=== PATIENT | male | born 1955 | race Caucasian/White ===

== ENCOUNTER 2016-10-13 11:01 | Day surgery (SDC) | payer MEDICARE, OTHER ==
[2016-10-13] VITALS (7 sets, daily range): BP systolic 136–159; BP diastolic 73–85; PULSE 65–87; TEMP 97.6–98.1
[~2016-10-13] VITALS: Ht 180.3 cm; Wt 114.1 kg
[~2016-10-13 11:01] MED LIST: ALDACTONE50 MG PO; AMARYL4 MG PO; ANTIVERT 25MG25 MG PO; ASPIRIN 32325 MG/TAB PO; BENICAR40 MG PO; BYSTOLIC20 MG PO; CENTRUM SILVER1 CTB PO; CIPRO 500MG TA500 MG PO; COD LIVER OIL1 CAP PO; DEMADEX 20MG20 M1 PO; DEMADEX10 MG PO; DSF FORMULA PO; DUO-KAPS1 CAP PO; FOLIC ACID 11 MG/TA1 PO; HYDRALAZINE10 MG PO; HYTRIN 1MG C1 MG/CAP PO; HYTRIN 5MG C5 MG/CAP PO; JANUVIA50 MG PO; LAMISIL250 M1 PO; LASIX 20MG TABL20 MG PO; LASIX 40MG TABL40 MG PO; MONODOX100 PO; NATURE'S BLEND500 M1 PO; NEPHROCAP PO; NEURONTIN100 MG/CAP PO; NEXIUM 40MG40 MG PO; NORVASC 10MG10 MG PO; PHOS LO PO; POTASSIUM IOD PO; POTASSIUM20 MEQ PO; PRAVACHOL 40MG40 MG PO; PROBIOTIC-MAJOR PO; PROSOL; SAW PALMETTO S450 MG PO; TOPROL XL 25MG25 MG PO; UNABLE; VALIUM 2MG T2 MG/TAB PO; VANCOCIN HCL1 GM IV; VASOTEC 10M10 MG/TAB PO; VASOTEC20 MG PO; VITAMIN C500 MG PO; ZAROXOLYN 2.52.5 MG PO; ZOFRAN 4MG T4 MG/TAB PO; [UNRECOGNIZED DRUG - OTHER] PO; [UNRECOGNIZED DRUG - OTHER] PO; [UNRECOGNIZED DRUG - OTHER] PO; [UNRECOGNIZED DRUG - OTHER] PO; [UNRECOGNIZED DRUG - OTHER] PO; [UNRECOGNIZED DRUG - OTHER] PO; [UNRECOGNIZED DRUG - OTHER] PO; [UNRECOGNIZED DRUG - REMARK] PO
[2016-10-13] MEDS ORDERED: PHOS LO PO (11:23)
[2016-10-13] MEDS ORDERED: PRECOSE 25MG25 MG PO (11:24)
[2016-10-13] MEDS ORDERED: ALTACE 5MG5 MG PO (11:25)
[2016-10-13] MEDS ORDERED: COREG 6.256.25 MG/TA PO (11:25)
[2016-10-13] MEDS ORDERED: [UNRECOGNIZED DRUG - OTHER] PO (11:26)
[2016-10-13] MEDS ORDERED: NORCO 325 MG-51 TAB PO (14:12)
[2016-10-13] MEDS ORDERED: PYRIDIUM 100MG100 MG PO (14:13)
== END 2016-10-13 15:30 | disposition home or self-care (01) ==
LOC: SDCO 11:01
DX: N35.9 Urethral stricture, unspecified (principal); I12.9 Hypertensive chronic kidney disease with stage 1 through stage 4 chronic kidney disease, or unspecified chronic kidney disease; E11.22 Type 2 diabetes mellitus with diabetic chronic kidney disease; N18.9 Chronic kidney disease, unspecified; E78.5 Hyperlipidemia, unspecified; G47.33 Obstructive sleep apnea (adult) (pediatric); Z79.84 Long term (current) use of oral hypoglycemic drugs; Z99.2 Dependence on renal dialysis; Z87.440 Personal history of urinary (tract) infections
CPT/HCPCS: C1769; J0690; J1885; J2405; J2704; J3010; J7030

== ENCOUNTER 2016-10-22 08:49 | Outpatient (CLI) | payer MEDICARE, OTHER ==
[~2016-10-22] VITALS: Ht 180.3 cm; Wt 111.0 kg
[~2016-10-22 08:49] MED LIST changes: +ALTACE 5MG5 MG PO; +COREG 6.256.25 MG/TA PO; +NORCO 325 MG-51 TAB PO; +PRECOSE 25MG25 MG PO; +PYRIDIUM 100MG100 MG PO; +[UNRECOGNIZED DRUG - OTHER] PO
[2016-10-22 09:40] VITALS: BP 162/89; PULSE 69; TEMP 98.1
[2016-10-22 13:35] VITALS: BP 165/79; PULSE 55
[2016-10-22 14:40] VITALS: BP 180/103; PULSE 69
[2016-10-22 14:50] VITALS: BP 185/104; PULSE 72
[2016-10-22 15:04] VITALS: BP 179/102; PULSE 66
[2016-10-22 15:55] VITALS: BP 167/95; PULSE 79
== END 2016-10-22 18:00 | disposition home or self-care (01) ==
LOC: EUO 08:49 → COL.RAD 09:00 → EUO 18:00
DX: N18.6 End stage renal disease (principal)
CPT/HCPCS: C1894; J3010; J7120; Q9967

== ENCOUNTER 2016-11-18 19:42 | Emergency (ER) | payer MEDICARE, OTHER ==
[~2016-11-18] VITALS: Ht 180.3 cm; Wt 115.5 kg
[2016-11-18 20:23] LABS: BASO # 0.1 (0.0-0.2); BASO % 0.7 % (0.0-2.0); EOS # 0.5 (0.0-0.7); EOS % 4.8 % (0-4.0); GRAN % 62.5 % (42.2-75.2); LYMPH # 2.5 (1.2-3.4); LYMPH % 22.1 % (20.0-51.0); MEAN CELL VOLUME 91 fl (80.0-100.0); MEAN CORPUSCULAR HGB CONC 34 g/dl (33.0-37.0); MONO % 8.7 % (1.7-9.3); PLATELET COUNT 168 K/mm3 (130-400); RED BLOOD COUNT 3.42 M/mm3 (4.20-5.60); REDCELL DISTRIBUTION WIDTH-CV 13.5 % (11.5-14.5); WHITE BLOOD COUNT 11.2 K/mm3 (4.8-10.8)
[2016-11-18 20:27] LABS: HEMATOCRIT 31.2 % (42.0-52.0); HEMOGLOBIN 10.5 g/dl (13.5-18.0); MEAN CORPUSCULAR HEMOGLOBIN 31 pg (27.0-31.0)
[2016-11-18 20:42] LABS: CREATININE, serum 3.84 mg/dL (0.66-1.25); MAGNESIUM 1.9 mg/dL (1.6-2.3); PHOSPHOROUS 4.8 mg/dL (2.5-4.5); POTASSIUM 4.1 mmol/L (3.4-5.0); PROTHROMBIN TIME 11.5 SECONDS (9.7-12.8)
[2016-11-18] MEDS ORDERED: JANUVIA50 MG PO (20:50)
[2016-11-18 21:55] VITALS: BP 106/73; PULSE 90; TEMP 97.9
== END 2016-11-18 21:55 | disposition home or self-care (01) ==
LOC: COL.ER 19:42
PROVIDERS: Emergency Medicine
DX: I95.1 Orthostatic hypotension (principal); E11.22 Type 2 diabetes mellitus with diabetic chronic kidney disease; I12.0 Hypertensive chronic kidney disease with stage 5 chronic kidney disease or end stage renal disease; N18.6 End stage renal disease; Z99.2 Dependence on renal dialysis; D64.9 Anemia, unspecified

== ENCOUNTER → 2016-12-10 | Outpatient (CLI) | payer MEDICARE, OTHER | LOC: COL.RAD 07:23 | DX: N23 Unspecified renal colic (principal); R31.9 Hematuria, unspecified ==

== ENCOUNTER → 2017-02-17 | Outpatient (CLI) | payer MEDICARE, OTHER | LOC: COL.RAD 16:42 | DX: I51.7 Cardiomegaly (principal) ==

== ENCOUNTER → 2017-05-28 | Outpatient (CLI) | payer MEDICARE, OTHER | LOC: SUN.DIA 09:33 | DX: E11.22 Type 2 diabetes mellitus with diabetic chronic kidney disease (principal); I12.9 Hypertensive chronic kidney disease with stage 1 through stage 4 chronic kidney disease, or unspecified chronic kidney disease; E11.21 Type 2 diabetes mellitus with diabetic nephropathy; N18.9 Chronic kidney disease, unspecified; Z68.34 Body mass index [BMI] 34.0-34.9, adult; Z87.891 Personal history of nicotine dependence; Z71.3 Dietary counseling and surveillance | CPT/HCPCS: G0108 ==

== ENCOUNTER 2017-06-13 11:25 | Emergency (ER) | payer MEDICARE, OTHER ==
[~2017-06-13] VITALS: Ht 180.3 cm; Wt 113.6 kg
[2017-06-13 11:27] VITALS: BP 162/94; TEMP 98.3
[2017-06-13 12:24] LABS: BASO # 0.1 (0.0-0.2); BASO % 0.9 % (0.0-2.0); EOS # 0.8 (0.0-0.7); EOS % 7.6 % (0-4.0); GRAN # 6.2 (1.4-6.5); GRAN % 60.8 % (42.2-75.2); LYMPH % 19.6 % (20.0-51.0); MEAN CELL VOLUME 94 fl (80.0-100.0); MEAN CORPUSCULAR HGB CONC 33 g/dl (33.0-37.0); MEAN PLATELET VOLUME 11.7 fl (7.4-10.4); MONO # 1.1 (0.1-0.6); MONO % 10.5 % (1.7-9.3); PLATELET COUNT 134 K/mm3 (130-400); RED BLOOD COUNT 3.21 M/mm3 (4.20-5.60); REDCELL DISTRIBUTION WIDTH-CV 14.8 % (11.5-14.5)
[2017-06-13 12:25] LABS: HEMATOCRIT 30.3 % (42.0-52.0); HEMOGLOBIN 10.1 g/dl (13.5-18.0); MEAN CORPUSCULAR HEMOGLOBIN 31 pg (27.0-31.0)
[2017-06-13] MEDS ORDERED: NORCO 325 MG-51 TAB PO (12:56)
[2017-06-13 13:14] VITALS: PULSE 88
[2018-08-15] MEDS ORDERED: MULTI VITAMINS1 TAB PO ×2 (15:27→15:28)
[2018-08-15] MEDS ORDERED: LANTUS SOLOS100 U/ML SQ (15:28)
[2018-08-15] MEDS ORDERED: OCUFLOX OPHTH DR5 ML (15:29)
[2018-08-15] MEDS ORDERED: ILEVRO 0.3% OPHTH DR (15:29)
[2018-08-15] MEDS ORDERED: DUREZOL 5 ML5 ML OU (15:30)
== END 2017-06-13 13:16 | disposition home or self-care (01) ==
LOC: COL.ER 11:25
PROVIDERS: Physician Assistant
DX: M25.561 Pain in right knee (principal); E11.22 Type 2 diabetes mellitus with diabetic chronic kidney disease; I12.0 Hypertensive chronic kidney disease with stage 5 chronic kidney disease or end stage renal disease; N18.6 End stage renal disease; Z79.84 Long term (current) use of oral hypoglycemic drugs; Z99.2 Dependence on renal dialysis; Z86.73 Personal history of transient ischemic attack (TIA), and cerebral infarction without residual deficits
CPT/HCPCS: L1830

== ENCOUNTER 2017-06-24 10:29 | Inpatient (IN) | payer MEDICARE, OTHER ==
[~2017-06-24] VITALS: Ht 180.3 cm; Wt 106.0 kg
[2017-08-19 17:55] LABS: HIV 1/2 Antibodies Non-Reactive; HIV-1p24 Antigen Non-Reactive
[2017-09-04] MEDS ORDERED: LANTUS100 U/ML SQ (10:03)
[2017-09-07] VITALS (12 sets, daily range): BP systolic 124–162; BP diastolic 47–87; PULSE 59–88; TEMP 97–99
[2017-09-07] MEDS ORDERED: RENVELA800 MG PO (07:15)
[2017-09-08 05:01] VITALS: BP 155/69; PULSE 92; TEMP 98.6
[2017-09-08 07:05] VITALS: BP 139/74; PULSE 89; TEMP 98.3
[2017-09-08 07:17] LABS: HEMOGLOBIN 10.2 g/dl (13.5-18.0)
[2017-09-08 07:21] LABS: ALBUMIN 3.1 gm/dL (3.5-5.0); CALCIUM 8.8 mg/dL (8.4-10.2); PHOSPHOROUS 6.5 mg/dL (2.5-4.5); POTASSIUM 4.9 mmol/L (3.4-5.0)
[2017-09-08 07:37] LABS: CREATININE, serum 9.39 mg/dL (0.66-1.25)
[2017-09-08 11:30] VITALS: BP 150/69; PULSE 99; TEMP 98.5
[2017-09-08 16:22] VITALS: BP 164/68; PULSE 97; TEMP 98.4
[2017-09-08 19:36] VITALS: BP 163/79; PULSE 103; TEMP 98.5
[2017-09-09 00:57] VITALS: BP 154/85; PULSE 100; TEMP 98.2
[2017-09-09 03:55] VITALS: BP 155/85; BP 174/85; PULSE 91; TEMP 98.2
[2017-09-09 07:29] VITALS: BP 175/89; PULSE 89; TEMP 97.9
[2017-09-09 10:41] VITALS: BP 138/72; PULSE 86; TEMP 98.1
[2017-09-09] MEDS ORDERED: ELIQUIS 2.5 PO (15:46)
[2017-09-09] MEDS ORDERED: NORCO 325 MG-7.1 TAB PO (15:46)
[2017-09-09 16:25] VITALS: BP 145/72; PULSE 90; TEMP 97.7
== END 2017-09-09 16:55 | disposition home or self-care (01) | DRG 469 ==
LOC: JCC 09-07 05:42
PROVIDERS: Internal Medicine Nephrology; Orthopaedic Surgery
PROC: 0SRC0J9 Replacement of Right Knee Joint with Synthetic Substitute, Cemented, Open Approach (ICD-10-PCS; principal; 2017-09-07 10:25)
PROC: 5A1D70Z Performance of Urinary Filtration, Intermittent, Less than 6 Hours Per Day (ICD-10-PCS; 2017-09-08)
DX: M17.11 Unilateral primary osteoarthritis, right knee (principal); N18.6 End stage renal disease; I12.0 Hypertensive chronic kidney disease with stage 5 chronic kidney disease or end stage renal disease; N25.81 Secondary hyperparathyroidism of renal origin; E11.22 Type 2 diabetes mellitus with diabetic chronic kidney disease; Z99.2 Dependence on renal dialysis; D63.1 Anemia in chronic kidney disease; E83.39 Other disorders of phosphorus metabolism; Z79.4 Long term (current) use of insulin; E11.65 Type 2 diabetes mellitus with hyperglycemia; Z91.14 Patient's other noncompliance with medication regimen
CPT/HCPCS: 99222; A4315; A9284; C1713; C1776; G8978-GP; G8979-GP; J0690; J0882; J1100; J1815; J2250; J2405; J2704; J2916; J3010; J3260; J7030; J7120

== ENCOUNTER → 2017-06-25 | Outpatient (CLI) | payer MEDICARE, OTHER, BC | LOC: SUN.DIA 08:56 | DX: E11.22 Type 2 diabetes mellitus with diabetic chronic kidney disease (principal); E11.21 Type 2 diabetes mellitus with diabetic nephropathy; I12.9 Hypertensive chronic kidney disease with stage 1 through stage 4 chronic kidney disease, or unspecified chronic kidney disease; N18.9 Chronic kidney disease, unspecified; Z79.4 Long term (current) use of insulin; E78.5 Hyperlipidemia, unspecified; Z71.3 Dietary counseling and surveillance ==

== ENCOUNTER 2017-07-01 08:57 | Outpatient (RCR) | payer MEDICARE, OTHER ==
[2017-09-04] MEDS ORDERED: LANTUS100 U/ML SQ (10:03)
[2017-09-07] MEDS ORDERED: RENVELA800 MG PO (07:15)
[2017-09-09] MEDS ORDERED: NORCO 325 MG-7.1 TAB PO (15:46)
[2017-09-09] MEDS ORDERED: ELIQUIS 2.5 PO (15:46)
== END 2017-09-29 | disposition home or self-care (01) ==
LOC: WSST
DX: K22.5 Diverticulum of esophagus, acquired (principal)
CPT/HCPCS: G8996-GN; G8997-GN

== ENCOUNTER → 2017-07-02 | Outpatient (CLI) | payer MEDICARE, OTHER | LOC: COL.RAD 08:00 | DX: R13.10 Dysphagia, unspecified (principal); K22.5 Diverticulum of esophagus, acquired | CPT/HCPCS: G8996-GN; G8997-GN; G8998-GN ==

== ENCOUNTER → 2017-07-24 | Outpatient (CLI) | payer MEDICARE, OTHER | LOC: MHCPAIN 08:27 | DX: G89.29 Other chronic pain (principal); M47.27 Other spondylosis with radiculopathy, lumbosacral region | CPT/HCPCS: G0463 ==

== ENCOUNTER 2017-09-12 17:00 | Outpatient (RCR) | payer MEDICARE, OTHER ==
[2017-09-10 18:08] VITALS: BP 139/90; PULSE 113; TEMP 98
[2017-09-11 17:09] VITALS: BP 182/87; PULSE 103; TEMP 98.2
[~2017-09-12] VITALS: Ht 180.3 cm; Wt 109.9 kg
[~2017-09-12 17:00] MED LIST changes: +ELIQUIS 2.5 PO; +LANTUS100 U/ML SQ; +NORCO 325 MG-7.1 TAB PO; +RENVELA800 MG PO
[2017-09-12 17:26] VITALS: BP 201/96; PULSE 93; TEMP 98.8
[2017-09-12 18:15] LABS: INR 4.8 (0.8-3.0)
[2017-09-12 18:19] LABS: PROTHROMBIN TIME 57.6 SECONDS (9.7-12.8)
== END 2017-09-14 16:43 | disposition home or self-care (01) ==
LOC: EUO 17:00
PROVIDERS: Emergency Medicine
DX: Z79.01 Long term (current) use of anticoagulants (principal); Z47.1 Aftercare following joint replacement surgery; Z96.651 Presence of right artificial knee joint; E11.22 Type 2 diabetes mellitus with diabetic chronic kidney disease; N18.9 Chronic kidney disease, unspecified; E11.40 Type 2 diabetes mellitus with diabetic neuropathy, unspecified; I13.0 Hypertensive heart and chronic kidney disease with heart failure and stage 1 through stage 4 chronic kidney disease, or unspecified chronic kidney disease; I50.9 Heart failure, unspecified; E78.5 Hyperlipidemia, unspecified; K22.5 Diverticulum of esophagus, acquired; G47.33 Obstructive sleep apnea (adult) (pediatric); K20.9 Esophagitis, unspecified; R35.1 Nocturia; N35.9 Urethral stricture, unspecified; N04.9 Nephrotic syndrome with unspecified morphologic changes
CPT/HCPCS: J1650

== ENCOUNTER 2017-11-06 08:45 | Outpatient (RCR) | payer MEDICARE, OTHER | END 2017-11-17 11:26 | disposition home or self-care (01) | LOC: WSPT 08:45 | DX: Z47.1 Aftercare following joint replacement surgery (principal); M17.11 Unilateral primary osteoarthritis, right knee; Z96.651 Presence of right artificial knee joint | CPT/HCPCS: G8978-GP; G8979-GP; G8980-GP ==

== ENCOUNTER → 2017-11-13 | Outpatient (CLI) | payer MEDICARE | LOC: COL.RAD 08:26 | DX: I77.810 Thoracic aortic ectasia (principal) ==

== ENCOUNTER 2018-12-23 12:53 | Day surgery (SDC) | payer MEDICARE, OTHER ==
[2018-12-23] VITALS (10 sets, daily range): BP systolic 170–199; BP diastolic 94–115; PULSE 76–97; TEMP 98.4
[~2018-12-23] VITALS: Ht 180.3 cm; Wt 113.1 kg
[~2018-12-23 12:53] MED LIST changes: +DUREZOL 5 ML5 ML OU; +ILEVRO 0.3% OPHTH DR; +LANTUS SOLOS100 U/ML SQ; +MULTI VITAMINS1 TAB PO; +OCUFLOX OPHTH DR5 ML
[2018-12-23 13:39] LABS: HEMATOCRIT 34.9 % (42.0-52.0); HEMOGLOBIN 11.4 g/dl (13.5-18.0); MEAN CELL VOLUME 93 fl (80.0-100.0); MEAN CORPUSCULAR HEMOGLOBIN 31 pg (27.0-31.0); MEAN CORPUSCULAR HGB CONC 33 g/dl (33.0-37.0); PLATELET COUNT 141 K/mm3 (130-400); RED BLOOD COUNT 3.74 M/mm3 (4.20-5.60)
[2018-12-23 13:44] LABS: PROTHROMBIN TIME 11.7 SECONDS (9.7-12.8)
[2018-12-23 13:48] LABS: CALCIUM 9.8 mg/dL (8.4-10.2); POTASSIUM 4.7 mmol/L (3.4-5.0)
[2018-12-23 13:53] LABS: CREATININE, serum 7.51 mg/dL (0.66-1.25)
[2018-12-23] MEDS ORDERED: PRILOSEC 20MG20 MG PO (14:03)
[2018-12-23] MEDS ORDERED: NEURONTIN100 MG/CAP PO (14:04)
[2018-12-23] MEDS ORDERED: COREG 6.256.25 MG/TA PO (14:09)
[2018-12-23] MEDS ORDERED: VITAMIN C500 MG PO (14:12)
[2018-12-23] MEDS ORDERED: VASCEPA1 GM PO (14:12)
--- NOTE | 2018-12-23 14:38 | NUR ---
pt to procedure.Report to Consuelo Lara.
--- NOTE | 2018-12-23 14:51 | NUR ---
ALL MEDICATIONS GIVEN WITH VERBAL ORDER WITH MD. SEE MERGE FOR ALL MEDICATION ADMIN TIMES. SEE MERGE FOR ALL RASS ASSESSMENTS DURING AND POST PROCEDURE.
--- NOTE | 2018-12-23 18:45 | NUR ---
Discharge instructions given to pt.Pt verbalizes understanding.
--- NOTE | 2018-12-23 19:08 | NUR ---
INT REMOVED,CATHETER TIP INTACT.PT ESCORTED OUT VIA WHEELCHAIR.
== END 2018-12-23 19:08 | disposition home or self-care (01) ==
LOC: COL.CAR 12:53
PROVIDERS: Internal Medicine Interventional Cardiology
DX: I25.10 Atherosclerotic heart disease of native coronary artery without angina pectoris (principal); I34.0 Nonrheumatic mitral (valve) insufficiency; R94.39 Abnormal result of other cardiovascular function study; I87.2 Venous insufficiency (chronic) (peripheral); I11.0 Hypertensive heart disease with heart failure; I50.22 Chronic systolic (congestive) heart failure; E11.9 Type 2 diabetes mellitus without complications; Z96.651 Presence of right artificial knee joint; Z86.73 Personal history of transient ischemic attack (TIA), and cerebral infarction without residual deficits
CPT/HCPCS: J1644; J2250; J3010; Q9967

== ENCOUNTER → 2019-03-28 | Outpatient (CLI) | payer MEDICARE, OTHER ==
[~2019-03-28] MED LIST changes: +PRILOSEC 20MG20 MG PO; +VASCEPA1 GM PO
== END ==
LOC: COL.RAD 12:45
DX: N13.39 Other hydronephrosis (principal); N26.1 Atrophy of kidney (terminal)

== ENCOUNTER 2019-06-23 16:04 | Emergency (ER) | payer MEDICARE, OTHER ==
[~2019-06-23] VITALS: Ht 180.3 cm; Wt 113.6 kg
[2019-06-23 16:31] VITALS: BP 117/60; TEMP 97.9
[2019-06-23 17:26] LABS: HEMOGLOBIN 12.9 g/dl (13.5-18.0); MEAN CELL VOLUME 90 fl (80.0-100.0); MEAN CORPUSCULAR HEMOGLOBIN 29 pg (27.0-31.0); MEAN CORPUSCULAR HGB CONC 32 g/dl (33.0-37.0); MEAN PLATELET VOLUME 10.9 fl (7.4-10.4); PLATELET COUNT 158 K/mm3 (130-400); RED BLOOD COUNT 4.43 M/mm3 (4.20-5.60); REDCELL DISTRIBUTION WIDTH-CV 12.3 % (11.5-14.5)
[2019-06-23 17:42] LABS: COLLECTION METHOD CLEAN CATCH
[2019-06-23 17:44] LABS: ALBUMIN 3.5 gm/dL (3.5-5.0); BILIRUBIN,TOTAL 0.5 mg/dL (0.0-1.0); C-REACTIVE PROTEIN 8.5 mg/dL (0.0-0.9); CREATININE, serum 1.31 (0.66-1.25); POTASSIUM 4.1 mmol/L (3.4-5.0); TOTAL PROTEIN 6.6 gm/dL (6.4-8.2)
[2019-06-23 17:55] LABS: EOSINOPHIL 1 % (0-4); LYMPHOCYTE 6 % (20.0-51.0); NEUTROPHILS 75 % (42.0-75.2); PLATELET ESTIMATE NORMAL (NORMAL)
[2019-06-23 17:58] LABS: MUCOUS Present /lpf; PH 5 (5-8); SQUAMOUS EPITHELIAL None Seen /hpf; URINE APPEARANCE Clear; URINE BACTERIA None Seen /hpf; URINE BILIRUBIN Negative (NEGATIVE); URINE BLOOD Negative (NEGATIVE); URINE COLOR Yellow; URINE GLUCOSE 2+ (NEGATIVE); URINE KETONE Negative (NEGATIVE); URINE LEUKOCYTE ESTERASE Trace (NEGATIVE); URINE NITRATE Negative (NEGATIVE); URINE PROTEIN(semi-quant) Negative (NEGATIVE); URINE RBC 0-2 /hpf; URINE UROBILINOGEN Negative (NEGATIVE)
[2019-06-23] MEDS ORDERED: VANTIN 200200 MG/TAB PO (20:23)
[2019-06-23 20:45] VITALS: PULSE 85
== END 2019-06-23 20:45 | disposition home or self-care (01) ==
LOC: COL.ER 16:04
PROVIDERS: Family Medicine
DX: N39.0 Urinary tract infection, site not specified (principal); E11.9 Type 2 diabetes mellitus without complications; I10 Essential (primary) hypertension; Z79.4 Long term (current) use of insulin; Z94.0 Kidney transplant status
CPT/HCPCS: A4216; J0696; J2270; J2405; J7030

== ENCOUNTER 2020-05-02 16:31 | Inpatient (IN) | payer MEDICARE ==
[~2020-05-02] VITALS: Ht 180.3 cm; Wt 112.7 kg
[~2020-05-02 16:31] MED LIST changes: +VANTIN 200200 MG/TAB PO
[2020-05-02] MEDS ORDERED: NOVOLOG FLEX100 U/ML SQ (17:01)
[2020-05-02] MEDS ORDERED: MYFORTIC360 MG PO (17:04)
[2020-05-02] MEDS ORDERED: PREDNISONE 5MG5 MG PO (17:05)
[2020-05-02] MEDS ORDERED: NORVASC 5MG5 MG/TAB PO (17:06)
[2020-05-02] MEDS ORDERED: ELIQUIS 5MG PO (17:07)
[2020-05-02] MEDS ORDERED: BASAGLAR K100 UNIT/1 SQ (17:07)
[2020-05-02] MEDS ORDERED: TOPROL XL 50MG50 MG PO (17:09)
[2020-05-02] MEDS ORDERED: DULCOLAX STOOL100 MG PO (17:09)
[2020-05-02] MEDS ORDERED: PROGRAF 1MG1 MG PO (17:12)
[2020-05-02] MEDS ORDERED: PROGRAF 0.5MG0.5 MG PO (17:13)
[2020-05-02] MEDS ORDERED: K-PHOS NEUTRAL250 M1 PO (17:15)
[2020-05-02] MEDS ORDERED: VITAMIN FLUSH-F1 CAP PO (17:16)
[2020-05-02 17:48] LABS: BASO % 0.2 % (0.0-2.0); GRAN # 3.9 (1.4-6.5); GRAN % 68.5 % (42.2-75.2); HEMATOCRIT 46.2 % (42.0-52.0); HEMOGLOBIN 15.4 g/dl (13.5-18.0); LYMPH # 0.7 (1.2-3.4); LYMPH % 11.4 % (20.0-51.0); MEAN CELL VOLUME 87 fl (80.0-100.0); MEAN CORPUSCULAR HEMOGLOBIN 29 pg (27.0-31.0); MEAN CORPUSCULAR HGB CONC 33 g/dl (33.0-37.0); MEAN PLATELET VOLUME 12.1 fl (7.4-10.4); MONO # 1.1 (0.1-0.6); MONO % 19.4 % (1.7-9.3); PLATELET COUNT 104 K/mm3 (130-400); RED BLOOD COUNT 5.34 M/mm3 (4.20-5.60); REDCELL DISTRIBUTION WIDTH-CV 13.2 % (11.5-14.5)
[2020-05-02 18:08] LABS: ALBUMIN 3.8 gm/dL (3.5-5.0); BILIRUBIN,TOTAL 0.9 mg/dL (0.0-1.0); CREATININE, serum 1.34 (0.66-1.25); POTASSIUM 4.7 mmol/L (3.4-5.0); TOTAL PROTEIN 7.1 gm/dL (6.4-8.2)
[2020-05-02 22:15] VITALS: PULSE 102; TEMP 99.5
[2020-05-02 22:20] LABS: COLLECTION METHOD CLEAN CATCH
[2020-05-02 22:35] LABS: MUCOUS Present /lpf; PH 5 (5-8); SQUAMOUS EPITHELIAL 0-2 /hpf; URINE APPEARANCE Hazy; URINE BACTERIA None Seen /hpf; URINE BILIRUBIN Negative (NEGATIVE); URINE BLOOD 1+ (NEGATIVE); URINE COLOR Yellow; URINE GLUCOSE 1+ (NEGATIVE); URINE KETONE Trace (NEGATIVE); URINE LEUKOCYTE ESTERASE Negative (NEGATIVE); URINE NITRATE Negative (NEGATIVE); URINE PROTEIN(semi-quant) 2+ (NEGATIVE); URINE RBC 0-2 /hpf; URINE UROBILINOGEN Negative (NEGATIVE)
--- NOTE | 2020-05-02 23:18 | NUR ---
Pt arrived to medical unit at 2252. Report received from ED nurse. Pt oriented to room. NS running to IV in left wrist at 125 ml/hr per orders. Blood pressure elevated at 168/100. Pt reports SOA with exertion. No other abnormal findings noted. Denies pain and other needs at this time. Call light in reach. Will continue to monitor.
[2020-05-02 23:37] VITALS: BP 140/86; PULSE 93; TEMP 99.7
[2020-05-03 04:05] VITALS: BP 140/88; PULSE 80; TEMP 99
--- NOTE | 2020-05-03 05:36 | NUR ---
Pt receiving IV fluids and IV antibiotics and steroids as ordered. No change in cough. Reports having some loose stools. No complaints of pain or shortness of breath.
[2020-05-03 06:41] LABS: BASO % 0.4 % (0.0-2.0); GRAN # 4.7 (1.4-6.5); GRAN % 83.9 % (42.2-75.2); HEMATOCRIT 46.3 % (42.0-52.0); HEMOGLOBIN 15.3 g/dl (13.5-18.0); LYMPH # 0.5 (1.2-3.4); LYMPH % 9.2 % (20.0-51.0); MEAN CELL VOLUME 87 fl (80.0-100.0); MEAN CORPUSCULAR HEMOGLOBIN 29 pg (27.0-31.0); MEAN CORPUSCULAR HGB CONC 33 g/dl (33.0-37.0); MEAN PLATELET VOLUME 12.2 fl (7.4-10.4); MONO # 0.3 (0.1-0.6); MONO % 5.8 % (1.7-9.3); PLATELET COUNT 117 K/mm3 (130-400); RED BLOOD COUNT 5.32 M/mm3 (4.20-5.60); REDCELL DISTRIBUTION WIDTH-CV 13.3 % (11.5-14.5)
[2020-05-03 06:46] LABS: ALBUMIN 3.8 gm/dL (3.5-5.0); BILIRUBIN,TOTAL 0.8 mg/dL (0.0-1.0); CALCIUM 9.5 mg/dL (8.4-10.2); CREATININE, serum 1.3 (0.66-1.25); POTASSIUM 4.4 mmol/L (3.4-5.0); TOTAL PROTEIN 7.3 gm/dL (6.4-8.2)
--- NOTE | 2020-05-03 07:52 | NUR ---
PATIENT ON RA-93%, LUNG SOUNDS DI BB BILATERAL
[2020-05-03 08:50] VITALS: BP 152/96; PULSE 78; TEMP 98.1
--- NOTE | 2020-05-03 10:18 | NUR ---
Tool Smith contacted the patient via room phone to complete initial intake. The patient lives in [place] with his , Jenn. His son Bayron ([phone]) lives in their basement and their grandson, Dillon lives upstairs. The patient has canes and walkers at his disposal but does not need them to ambulate. The patient is independent with ADLs. The patient's PCP is Dr. Rea and patient receives medications from [facility]. The patient does not have advanced directives. The patient has 5 children. Alexis lives in [facility], Davi lives in [facility], Alexis in [place] ([phone]) and Phyllis ([phone]) lives in [place]. SW will continue to monitor for needs.
--- NOTE | 2020-05-03 11:44 | NUR ---
PT AOX4. DENIES PAIN. REPORTS MILD SOB WITH EXERTION. IV TO LT AC & HAND INTACT. REPORTS LOOSE BM THIS MORNING AND OVERNIGHT. STEADY INDEPENDENT AMBULATION. ON RA. NO NEW CONCERNS
[2020-05-03 12:52] VITALS: BP 137/74; PULSE 64; TEMP 98
[2020-05-03 16:30] VITALS: BP 144/92; PULSE 70; TEMP 98.8
[2020-05-03 19:36] VITALS: BP 122/78; PULSE 82; TEMP 97.9
--- NOTE | 2020-05-03 19:38 | NUR ---
ORDER TO SUBSTITE HOME CELLCEPT MED WITH HOSP GENERIC CONFIRMED WITH PHARMACY. PT GAVE HOME MEDS, WALLET AND CAR KEYS TO WHO IS DISCHARGING FROM [facility].
--- NOTE | 2020-05-03 21:15 | NUR ---
BG 311. Pt refusing to take any insulin at this time. Pt states he would like to check BG in 1 hour.
[2020-05-03 22:27] VITALS: BP 126/78; PULSE 74; TEMP 98.4
--- NOTE | 2020-05-04 00:45 | NUR ---
Pt refusing all insulin up until this point in the night. Pt requesting specific doses of insulin novolog at this time to "get his blood sugar to 100". ADRIÁN Velasco, notified of pt requesting doses of insulin novolog that are higher than the SSI ordered. Orders given to treat just using SSI and to check BG in one hour after administering. Pt agreed at this point to take SSI after attempting to leave AMA due to "not getting what he has needed all day". BG recheked at this time and was 244. 4 units SSI given per orders at this time. Pt requesting BG be rechecked in 2 hours stating that "one hour wouldnt be enough time". Pt also refused levemir tonchau stating that he takes 45 units of long acting insulin between 0300 and 0600 every morning. Pt stated the prescription was for 47 units of long acting but he "has found that 45 units works better for him" and would like to take it between 0300 and 0600 and not at this current time. Orders from ADRIÁN Velasco, to change levemir to 45 units in AM at time pt takes would take at home. Will continue to monitor BG.
[2020-05-04 03:19] VITALS: BP 165/75; PULSE 67; TEMP 98.2
--- NOTE | 2020-05-04 06:50 | NUR ---
Pt was able to get some sleep overnight. Denied pain. INT to left ac and left wrist CDI. Fistula to right forearm without complications. Pt denies any other needs at this time. Call light within reach.
--- NOTE | 2020-05-04 07:00 | NUR ---
Report given to YAW Carlin
[2020-05-04 09:01] LABS: CALCIUM 9.5 mg/dL (8.4-10.2); CREATININE, serum 1.16 (0.66-1.25); POTASSIUM 3.8 mmol/L (3.4-5.0)
[2020-05-04 09:06] LABS: GRAN # 4.6 (1.4-6.5); GRAN % 73.9 % (42.2-75.2); HEMATOCRIT 42.7 % (42.0-52.0); HEMOGLOBIN 14.3 g/dl (13.5-18.0); LYMPH # 0.8 (1.2-3.4); LYMPH % 12.1 % (20.0-51.0); MEAN CELL VOLUME 86 fl (80.0-100.0); MEAN CORPUSCULAR HEMOGLOBIN 29 pg (27.0-31.0); MEAN CORPUSCULAR HGB CONC 34 g/dl (33.0-37.0); MEAN PLATELET VOLUME 11.8 fl (7.4-10.4); MONO # 0.9 (0.1-0.6); MONO % 13.7 % (1.7-9.3); PLATELET COUNT 99 K/mm3 (130-400); RED BLOOD COUNT 4.94 M/mm3 (4.20-5.60); REDCELL DISTRIBUTION WIDTH-CV 13.2 % (11.5-14.5)
[2020-05-04 12:25] VITALS: BP 136/64; PULSE 65; TEMP 98.5
--- NOTE | 2020-05-04 13:16 | NUR ---
Patient is alert and oriented. decline any pain. patient BS was 233, sliding scale was 4units. patient refuse, stating it has to be 24 units or non. Spoke with Hospitalist, Insulin reviewed. 30UNIT was ordered for now. Patient current BS is 292. 30units was administered.
[2020-05-04 18:10] VITALS: BP 144/76; PULSE 64; TEMP 98.2
--- NOTE | 2020-05-04 20:00 | NUR ---
Assessment complete at this time. Patient is on RA and shows no increased work of breathing. Patient is afebrile. He requests to have his blood sugar checked at 0000 because he ate dinner late. He states he has had at least one episode of diarrhea during day shift today. Will continue to monitor.
[2020-05-04 21:02] VITALS: BP 144/72; PULSE 74; TEMP 98.8
[2020-05-05] VITALS (8 sets, daily range): BP systolic 126–177; BP diastolic 67–88; PULSE 51–68; TEMP 97.2–98.4
--- NOTE | 2020-05-05 08:20 | NUR ---
Pt sleeping upon entry, easily awakened, no C/O pain at this time, shift assessments complete, left Pt call light in reach, bed in lowest position.
--- NOTE | 2020-05-05 19:12 | NUR ---
Pt resting in the room today, has had no complaints of discomfort / pain. VS have remained stable.
--- NOTE | 2020-05-05 20:00 | NUR ---
Assessment complete. Patient is on RA and shows no signs of increased work of breathing. He is afebrile. No edema or pain is present. No new concerns.
--- NOTE | 2020-05-05 22:30 | NUR ---
Notified at this time by telemetry that this patient had a 10 beat run of PVC's and heart rate dipped below 50 bpm. Krista Vera notified; STAT labs ordered and collected.
[2020-05-06 00:19] LABS: BASO % 0.1 % (0.0-2.0); GRAN # 5.6 (1.4-6.5); GRAN % 78.3 % (42.2-75.2); HEMATOCRIT 45.4 % (42.0-52.0); HEMOGLOBIN 14.7 g/dl (13.5-18.0); LYMPH # 0.6 (1.2-3.4); MEAN CELL VOLUME 89 fl (80.0-100.0); MEAN CORPUSCULAR HEMOGLOBIN 29 pg (27.0-31.0); MEAN CORPUSCULAR HGB CONC 32 g/dl (33.0-37.0); MEAN PLATELET VOLUME 12.2 fl (7.4-10.4); MONO # 0.8 (0.1-0.6); MONO % 11.8 % (1.7-9.3); PLATELET COUNT 99 K/mm3 (130-400); RED BLOOD COUNT 5.12 M/mm3 (4.20-5.60); REDCELL DISTRIBUTION WIDTH-CV 13.2 % (11.5-14.5)
[2020-05-06 00:23] LABS: CALCIUM 9.4 mg/dL (8.4-10.2); CREATININE, serum 0.97 (0.66-1.25); MAGNESIUM 1.6 mg/dL (1.6-2.3); POTASSIUM 3.8 mmol/L (3.4-5.0)
[2020-05-06 04:28] VITALS: BP 153/71; PULSE 50; TEMP 98
--- NOTE | 2020-05-06 04:34 | NUR ---
YAW AND ADRIÁN ESPINO NOTIFIED OF CRITICAL EKG.
--- NOTE | 2020-05-06 05:02 | NUR ---
Per telemetry, patient has been in and out of an idioventricular rhythm tonight. Physician notified; 1mg Mag administered; EKG ordered; 2mg additional Mag ordered and currently infusing. Defibrillator pads have been applied and crash cart outside of room, per physician preference. Will continue to monitor.
[2020-05-06 08:01] VITALS: BP 165/85; PULSE 50; TEMP 97.9
[2020-05-06 08:36] LABS: CALCIUM 9.2 mg/dL (8.4-10.2); CREATININE, serum 0.99 (0.66-1.25); MAGNESIUM 2.1 mg/dL (1.6-2.3); POTASSIUM 3.6 mmol/L (3.4-5.0)
--- NOTE | 2020-05-06 10:34 | NUR ---
Pt awakw and alert upon entry this morning, talkativer and appropriate, shift assessments complete, left Pt call light in reach, bed in lowest position.
[2020-05-06 11:45] VITALS: BP 170/65; PULSE 58; TEMP 97.6
[2020-05-06 15:43] VITALS: BP 150/80; PULSE 60; TEMP 98
--- NOTE | 2020-05-06 18:50 | NUR ---
Pt resting in the room, no C/O pain today, Pt was assisted to shower by PCT, eating well, VS have remained stable.
--- NOTE | 2020-05-06 19:30 | NUR ---
Received report from Saul. Seen patient awake, lying in bed. Denies pain. With INT on left wrist and left AC. On room air. He is alert and oriented. Call light within reach.
[2020-05-06 21:28] VITALS: BP 178/86; PULSE 60; TEMP 98.2
--- NOTE | 2020-05-06 22:00 | NUR ---
This nurse is about to give insulin 3 units to the patient but he refuses and said that he should be getting 15units. Informed Krista LIGHT via phone call and she put an order for now dose of Novolog 15 units.
[2020-05-07] VITALS (7 sets, daily range): BP systolic 140–180; BP diastolic 70–100; PULSE 55–84; TEMP 97.8–98.3
--- NOTE | 2020-05-07 04:15 | NUR ---
Tele nurse called asking if patient is having some chest pain since patient is having multiple PVC's . Went inside his room and patient is asleep. Woke him up for vital signs and he denies any chest pain. BP is 170/100. Will give patient Hydralazine PRN.
--- NOTE | 2020-05-07 04:50 | NUR ---
Patient's blood pressure is 170/100. Hydralazine PRN given. Insulin Campos 47 units given. Patient checked his blood sugar using his machine on his left arm, glucose is 175mg/dl.
--- NOTE | 2020-05-07 06:20 | NUR ---
Patient had an uneventful night. Denies pain. Not in distress. Will endorse to day shift nurse.
--- NOTE | 2020-05-07 08:00 | NUR ---
PT ALERT AND ORIENTED, DID NOT COMPLAIN OF PAIN OR DISCOMFORT. PT BED IN LOW POSITION. VITALS TAKEN, MEDICATIONS GIVEN. PT PLEASANT, NO COMPLAINTS AT THIS TIME. PT HAS STEADY GAIT. REQUESTED NEW FOOD TRAY, TRAY BROUGHT IN FOR PT.
--- NOTE | 2020-05-07 17:01 | NUR ---
PT VITALS TAKEN, PT DENIES PAIN OR DISCOMFORT. PT COMFORTABLE IN ROOM. BS TAKEN. PT HAD UNEVENTFUL SHIFT.
--- NOTE | 2020-05-07 19:32 | NUR ---
Report received from YAW Dietrich. Pt resting in room at this time.
--- NOTE | 2020-05-07 21:42 | NUR ---
Assessment completed. Pt had BM, stool was loose and dark green, pt reports this has improved from previously watery stools. Denies any abdominal pain or cramping. INT to left wrist and INT to left AC intact and flush easily. No other abnormal findings noted. Pt denies pain and shortness of breath. Will continue to monitor. Call light in reach.
[2020-05-08 00:39] LABS: CLOSTRIDIUM DIFF A/B NEG; CLOSTRIDIUM DIFF A/B INTERP No C.diff present
[2020-05-08 02:50] VITALS: BP 158/88; PULSE 67; TEMP 98
[2020-05-08 03:13] LABS: HEMATOCRIT 42.9 % (42.0-52.0); HEMOGLOBIN 14.6 g/dl (13.5-18.0); MEAN CELL VOLUME 85 fl (80.0-100.0); MEAN CORPUSCULAR HEMOGLOBIN 29 pg (27.0-31.0); MEAN CORPUSCULAR HGB CONC 34 g/dl (33.0-37.0); MEAN PLATELET VOLUME 11.9 fl (7.4-10.4); PLATELET COUNT 120 K/mm3 (130-400); RED BLOOD COUNT 5.07 M/mm3 (4.20-5.60); REDCELL DISTRIBUTION WIDTH-CV 13.1 % (11.5-14.5)
[2020-05-08 03:20] LABS: CALCIUM 9.2 mg/dL (8.4-10.2); CREATININE, serum 1.07 (0.66-1.25); MAGNESIUM 1.5 mg/dL (1.6-2.3); POTASSIUM 3.5 mmol/L (3.4-5.0)
[2020-05-08 03:46] LABS: BAND 3 % (0-10); LYMPHOCYTE 20 % (20.0-51.0); NEUTROPHILS 71 % (42.0-75.2)
[2020-05-08 03:47] LABS: PLATELET ESTIMATE DECREASED (NORMAL)
--- NOTE | 2020-05-08 05:10 | NUR ---
Pt resting in bed throughout shift. Pt has had occasional runs of PVCs with HR dropping to 40s at times, per library monitor. Upon assessment, pt denies pain, SOA, or dizziness. Vital signs within normal limits for pt. Magnesium and potassium levels drawn STAT per orders. Magnesium was found to be 1.5 and potassium 3.5. Pt placed on potassium replacement protocol and ordered 3 grams magnesium sulfate IV. Magnesium sulfate and potassium administered per orders.
[2020-05-08 08:11] VITALS: BP 166/88; PULSE 77; TEMP 97.9
--- NOTE | 2020-05-08 08:44 | NUR ---
PT DENIES PAIN OR DISCOMFORT, STILL REPORTS DIARRHEA UNCHANGED FROM PREVIOUS DAY. PT PLEASANT, AOX4. BROUGHT IN BREAKFAST, TOOK VITALS, GAVE MEDS, PERFORMED ASSESSMENT, NO OTHER NEEDS AT THIS TIME.
[2020-05-08 11:02] VITALS: BP 148/77; PULSE 75; TEMP 97.1
[2020-05-08 11:35] LABS: CALCIUM 9.5 mg/dL (8.4-10.2); CREATININE, serum 0.97 (0.66-1.25); POTASSIUM 3.7 mmol/L (3.4-5.0)
[2020-05-08] MEDS ORDERED: DECADRON6 MG PO (13:23)
[2020-05-08] MEDS ORDERED: TOPROL XL 25MG25 MG PO (13:24)
[2020-05-08] MEDS ORDERED: BACTRIM 400 MG-1 TAB PO (13:35)
--- NOTE | 2020-05-08 14:28 | NUR ---
Structural Engineer collaborated with YAW Dietrich who advised patient has been independent in his room and will discharge today. SW collaborated with patient to inform him that we would be unable to assist him in voting as we cannot copy his ballot. Patient inquired about taking in his ballot and SW advised that he is to quarantine upon discharge due to his positive COVID test. No additional needs a this time.
--- NOTE | 2020-05-08 16:33 | NUR ---
DISCHARGE EDUCATION PROVIDED. IV DISCONTINUED. TELE REMOVED. PT'S CALLED FOR PICKUP
--- NOTE | 2020-05-08 17:24 | NUR ---
PT SHANAE ARRIVED. PT IV DISCONTINUED, DISHCARGE PAPERWORK PROVIDED, TELE DISCONTINUED. NO OTHER NEEDS AT THIS TIME.
[2020-05-10 05:28] LABS: TB GOLD INTERPRETATION Indeterminate (Negative)
[2020-05-14 10:33] LABS: BLASTOMYCES AB CF XXX; COCCIDIOIDES AB CF XXX; HISTOPLASMA MYCELIAL AB CF XXX
== END 2020-05-08 17:25 | disposition home or self-care (01) | DRG 177 ==
LOC: COL.ER 16:31 → MEDICAL 19:52
PROVIDERS: Family Medicine; Hospitalist; Internal Medicine Infectious Disease; Nurse Practitioner Family; Nurse Practitioner Primary Care; Student in an Organized Health Care Education/Training Program; ADMIT Internal Medicine
DX: U07.1 COVID-19 (principal); J12.89 Other viral pneumonia; Z94.0 Kidney transplant status; K21.9 Gastro-esophageal reflux disease without esophagitis; G47.33 Obstructive sleep apnea (adult) (pediatric); R00.1 Bradycardia, unspecified; I10 Essential (primary) hypertension; E11.9 Type 2 diabetes mellitus without complications; Z79.01 Long term (current) use of anticoagulants
CPT/HCPCS: 99232-AI; 99233-AI; 99239; A9284; J0456; J0696; J1815; J2543; J2930; J3475; J7030; J7050; J7120; J7507; J7517; J8540

== ENCOUNTER 2020-05-13 09:35 | Inpatient (IN) | payer MEDICARE ==
[~2020-05-13] VITALS: Ht 180.3 cm; Wt 119.5 kg
[2020-05-13] VITALS (484 sets, daily range): BP systolic 80–173; BP diastolic 47–92; PULSE 76–85; TEMP 98–99.5; O2SAT 93–100
[~2020-05-13 09:35] MED LIST changes: +BACTRIM 400 MG-1 TAB PO; +BASAGLAR K100 UNIT/1 SQ; +DECADRON6 MG PO; +DULCOLAX STOOL100 MG PO; +ELIQUIS 5MG PO; +K-PHOS NEUTRAL250 M1 PO; +MYFORTIC360 MG PO; +NORVASC 5MG5 MG/TAB PO; +NOVOLOG FLEX100 U/ML SQ; +PREDNISONE 5MG5 MG PO; +PROGRAF 0.5MG0.5 MG PO; +PROGRAF 1MG1 MG PO; +TOPROL XL 50MG50 MG PO; +VITAMIN FLUSH-F1 CAP PO
[2020-05-13 10:10] LABS: HEMOGLOBIN 17.1 g/dl (13.5-18.0); MEAN CELL VOLUME 87 fl (80.0-100.0); MEAN CORPUSCULAR HEMOGLOBIN 28 pg (27.0-31.0); MEAN CORPUSCULAR HGB CONC 33 g/dl (33.0-37.0); MEAN PLATELET VOLUME 11.5 fl (7.4-10.4); PLATELET COUNT 146 K/mm3 (130-400); RED BLOOD COUNT 6.02 M/mm3 (4.20-5.60); REDCELL DISTRIBUTION WIDTH-CV 13.9 % (11.5-14.5)
[2020-05-13 10:13] LABS: HEMATOCRIT 52.1 % (42.0-52.0)
[2020-05-13 10:18] LABS: ALBUMIN 3.8 gm/dL (3.5-5.0); BILIRUBIN,TOTAL 0.9 mg/dL (0.0-1.0); CREATININE, serum 1.52 (0.66-1.25); POTASSIUM 3.7 mmol/L (3.4-5.0); TOTAL PROTEIN 7.8 gm/dL (6.4-8.2)
[2020-05-13 10:29] LABS: C-REACTIVE PROTEIN 20.6 mg/dL (0.0-0.9)
[2020-05-13 10:30] LABS: TROPONIN-I 0.045 ng/mL (0.000-0.035)
[2020-05-13 11:09] LABS: BAND 9 % (0-10); NEUTROPHILS 82 % (42.0-75.2)
[2020-05-13 11:11] LABS: PLATELET ESTIMATE NORMAL (NORMAL)
[2020-05-13 11:12] LABS: LYMPHOCYTE 3 % (20.0-51.0)
[2020-05-13 12:13] LABS: COLLECTION METHOD CLEAN CATCH
[2020-05-13 12:19] LABS: MUCOUS Present /lpf; PH 5 (5-8); SQUAMOUS EPITHELIAL 0-2 /hpf; URINE APPEARANCE Hazy; URINE BILIRUBIN Negative (NEGATIVE); URINE BLOOD 1+ (NEGATIVE); URINE COLOR Yellow; URINE GLUCOSE 1+ (NEGATIVE); URINE KETONE Negative (NEGATIVE); URINE LEUKOCYTE ESTERASE Negative (NEGATIVE); URINE NITRATE Negative (NEGATIVE); URINE PROTEIN(semi-quant) 2+ (NEGATIVE); URINE RBC 0-2 /hpf; URINE UROBILINOGEN Negative (NEGATIVE)
[2020-05-13 12:22] LABS: URINE BACTERIA Rare /hpf
[2020-05-13 17:22] LABS: ARTERIAL BLD GAS O2 SATURATION 96.8 % (92-100); ARTERIAL BLOOD GAS PCO2 32.9 mmHg (35-45); ARTERIAL BLOOD GAS PO2 86.3 mmHg (80-100); ARTERIAL BLOOD GAS pH 7.38 (7.35-7.45)
[2020-05-13 20:07] LABS: URINE PROTEIN:CREAT RATIO 0.46 (0.00-0.14)
[2020-05-14] VITALS (829 sets, daily range): BP systolic 89–192; BP diastolic 45–80; PULSE 67–88; TEMP 97.6–98.6; O2SAT 69–100
[2020-05-14 05:50] LABS: ARTERIAL BLD GAS O2 SATURATION 99.2 % (92-100); ARTERIAL BLD GAS TCO2 CT 21.5; ARTERIAL BLOOD GAS BASE EXCESS -5.3 (-2-2); ARTERIAL BLOOD GAS HCO3 20.3 meq/L (22-26); ARTERIAL BLOOD GAS PCO2 39.7 mmHg (35-45); ARTERIAL BLOOD GAS pH 7.33 (7.35-7.45)
[2020-05-14 05:51] LABS: ARTERIAL BLOOD GAS PO2 176.6 mmHg (80-100)
[2020-05-14 06:46] LABS: HEMATOCRIT 41.3 % (42.0-52.0); INR 1.3 (0.8-3.0); MEAN CELL VOLUME 87 fl (80.0-100.0); MEAN CORPUSCULAR HEMOGLOBIN 29 pg (27.0-31.0); MEAN CORPUSCULAR HGB CONC 33 g/dl (33.0-37.0); MEAN PLATELET VOLUME 12.1 fl (7.4-10.4); PLATELET COUNT 95 K/mm3 (130-400); PROTHROMBIN TIME 15.1 SECONDS (9.7-12.8); RED BLOOD COUNT 4.73 M/mm3 (4.20-5.60); REDCELL DISTRIBUTION WIDTH-CV 13.9 % (11.5-14.5)
[2020-05-14 06:56] LABS: HEMOGLOBIN 13.5 g/dl (13.5-18.0)
[2020-05-14 07:02] LABS: ALBUMIN 2.5 gm/dL (3.5-5.0); BILIRUBIN,TOTAL 0.7 mg/dL (0.0-1.0); CALCIUM 8.7 mg/dL (8.4-10.2); CREATININE, serum 1.31 (0.66-1.25); MAGNESIUM 1.8 mg/dL (1.6-2.3); POTASSIUM 4.2 mmol/L (3.4-5.0); TOTAL PROTEIN 5.3 gm/dL (6.4-8.2)
[2020-05-14 09:36] LABS: BAND 3 % (0-10); LYMPHOCYTE 2 % (20.0-51.0); NEUTROPHILS 90 % (42.0-75.2)
[2020-05-14 09:37] LABS: PLATELET ESTIMATE DECREASED (NORMAL)
[2020-05-14 10:45] LABS: ARTERIAL BLD GAS O2 SATURATION 95.8 % (92-100); ARTERIAL BLOOD GAS BASE EXCESS -6.3 (-2-2); ARTERIAL BLOOD GAS HCO3 18.9 meq/L (22-26); ARTERIAL BLOOD GAS PCO2 36.8 mmHg (35-45); ARTERIAL BLOOD GAS PO2 84.4 mmHg (80-100); ARTERIAL BLOOD GAS pH 7.33 (7.35-7.45)
[2020-05-14 10:49] LABS: PRE ALBUMIN 7.1 mg/dL (17.6-36.0)
[2020-05-14 10:56] LABS: TROPONIN-I 0.032 ng/mL (0.000-0.035)
[2020-05-14 15:57] LABS: HEMATOCRIT 44.3 % (42.0-52.0); HEMOGLOBIN 14.4 g/dl (13.5-18.0)
[2020-05-15] VITALS (652 sets, daily range): BP systolic 96–129; BP diastolic 60–70; PULSE 69–90; TEMP 97.8–98.4; O2SAT 91–100
[2020-05-15 05:24] LABS: BASO % 0.1 % (0.0-2.0); GRAN # 9.8 (1.4-6.5); HEMATOCRIT 38.7 % (42.0-52.0); HEMOGLOBIN 12.8 g/dl (13.5-18.0); LYMPH # 0.2 (1.2-3.4); LYMPH % 1.9 % (20.0-51.0); MEAN CELL VOLUME 88 fl (80.0-100.0); MEAN CORPUSCULAR HEMOGLOBIN 29 pg (27.0-31.0); MEAN CORPUSCULAR HGB CONC 33 g/dl (33.0-37.0); MEAN PLATELET VOLUME 11.5 fl (7.4-10.4); MONO # 0.8 (0.1-0.6); MONO % 7.3 % (1.7-9.3); PLATELET COUNT 90 K/mm3 (130-400); RED BLOOD COUNT 4.41 M/mm3 (4.20-5.60); REDCELL DISTRIBUTION WIDTH-CV 14.1 % (11.5-14.5)
[2020-05-15 05:33] LABS: INR 1.2 (0.8-3.0); PROTHROMBIN TIME 13.9 SECONDS (9.7-12.8)
[2020-05-15 05:34] LABS: ALBUMIN 2.4 gm/dL (3.5-5.0); BILIRUBIN,TOTAL 0.6 mg/dL (0.0-1.0); CALCIUM 9.4 mg/dL (8.4-10.2); CREATININE, serum 1.55 (0.66-1.25); MAGNESIUM 2.4 mg/dL (1.6-2.3); PHOSPHOROUS 3.6 mg/dL (2.5-4.5); POTASSIUM 3.8 mmol/L (3.4-5.0); TOTAL PROTEIN 5.2 gm/dL (6.4-8.2)
[2020-05-15 05:47] LABS: ARTERIAL BLD GAS O2 SATURATION 93.3 % (92-100); ARTERIAL BLD GAS TCO2 CT 20.4; ARTERIAL BLOOD GAS BASE EXCESS -5.7 (-2-2); ARTERIAL BLOOD GAS HCO3 19.3 meq/L (22-26); ARTERIAL BLOOD GAS PO2 71.4 mmHg (80-100); ARTERIAL BLOOD GAS pH 7.35 (7.35-7.45)
[2020-05-15 21:00] LABS: HEMATOCRIT 38.6 % (42.0-52.0); HEMOGLOBIN 12.6 g/dl (13.5-18.0)
[2020-05-15 21:01] LABS: INR 1.2 (0.8-3.0); PROTHROMBIN TIME 13.2 SECONDS (9.7-12.8)
[2020-05-16] VITALS (699 sets, daily range): BP systolic 106–141; BP diastolic 68–79; PULSE 68–96; TEMP 97.8–99.3; O2SAT 93–100
[2020-05-16 02:22] LABS: GASTROCCULT POSITIVE; pH GASTRIC CONTENTS 3
[2020-05-16 05:23] LABS: BASO % 0.1 % (0.0-2.0); EOS % 0.1 % (0-4.0); GRAN # 9.8 (1.4-6.5); GRAN % 88.2 % (42.2-75.2); LYMPH # 0.4 (1.2-3.4); LYMPH % 3.2 % (20.0-51.0); MEAN CELL VOLUME 88 fl (80.0-100.0); MEAN CORPUSCULAR HEMOGLOBIN 29 pg (27.0-31.0); MEAN CORPUSCULAR HGB CONC 32 g/dl (33.0-37.0); MEAN PLATELET VOLUME 11.4 fl (7.4-10.4); MONO # 0.8 (0.1-0.6); MONO % 7.3 % (1.7-9.3); PLATELET COUNT 92 K/mm3 (130-400); REDCELL DISTRIBUTION WIDTH-CV 14.4 % (11.5-14.5)
[2020-05-16 05:32] LABS: ALBUMIN 2.4 gm/dL (3.5-5.0); BILIRUBIN,TOTAL 0.8 mg/dL (0.0-1.0); CALCIUM 9.4 mg/dL (8.4-10.2); CREATININE, serum 1.74 (0.66-1.25); MAGNESIUM 2.4 mg/dL (1.6-2.3); TOTAL PROTEIN 5.2 gm/dL (6.4-8.2)
[2020-05-16 05:45] LABS: INR 1.1 (0.8-3.0); PROTHROMBIN TIME 12.8 SECONDS (9.7-12.8)
[2020-05-16 06:14] LABS: ARTERIAL BLD GAS O2 SATURATION 91.8 % (92-100); ARTERIAL BLD GAS TCO2 CT 23.7; ARTERIAL BLOOD GAS BASE EXCESS -2.6 (-2-2); ARTERIAL BLOOD GAS HCO3 22.5 meq/L (22-26); ARTERIAL BLOOD GAS PO2 62.6 mmHg (80-100); ARTERIAL BLOOD GAS pH 7.37 (7.35-7.45)
[2020-05-17] VITALS (283 sets, daily range): BP systolic 120–153; BP diastolic 69–79; PULSE 68–86; TEMP 97.5–99.7; O2SAT 96–100
[2020-05-17 04:44] LABS: HEMATOCRIT 37.5 % (42.0-52.0); HEMOGLOBIN 12.2 g/dl (13.5-18.0); MEAN CELL VOLUME 88 fl (80.0-100.0); MEAN CORPUSCULAR HEMOGLOBIN 29 pg (27.0-31.0); MEAN CORPUSCULAR HGB CONC 33 g/dl (33.0-37.0); MEAN PLATELET VOLUME 11.6 fl (7.4-10.4); PLATELET COUNT 103 K/mm3 (130-400); RED BLOOD COUNT 4.26 M/mm3 (4.20-5.60); REDCELL DISTRIBUTION WIDTH-CV 14.1 % (11.5-14.5)
[2020-05-17 04:49] LABS: ALBUMIN 2.5 gm/dL (3.5-5.0); BILIRUBIN,TOTAL 0.8 mg/dL (0.0-1.0); CALCIUM 9.6 mg/dL (8.4-10.2); CREATININE, serum 1.53 (0.66-1.25); MAGNESIUM 2.4 mg/dL (1.6-2.3); PHOSPHOROUS 2.7 mg/dL (2.5-4.5); POTASSIUM 3.7 mmol/L (3.4-5.0); TOTAL PROTEIN 5.5 gm/dL (6.4-8.2)
[2020-05-17 05:07] LABS: BAND 2 % (0-10); LYMPHOCYTE 4 % (20.0-51.0); METAMYELOCYTE 2 % (0-0); NEUTROPHILS 87 % (42.0-75.2)
[2020-05-17 05:08] LABS: HYPOCHROMIA 1+; PLATELET ESTIMATE DECREASED (NORMAL)
[2020-05-17 06:09] LABS: ARTERIAL BLD GAS O2 SATURATION 98.7 % (92-100); ARTERIAL BLD GAS TCO2 CT 22.1; ARTERIAL BLOOD GAS BASE EXCESS -4.7 (-2-2); ARTERIAL BLOOD GAS HCO3 20.9 meq/L (22-26); ARTERIAL BLOOD GAS PCO2 40.5 mmHg (35-45); ARTERIAL BLOOD GAS pH 7.33 (7.35-7.45)
== END 2020-05-17 14:43 | disposition short-term general hospital (02) | DRG 871 ==
LOC: COL.ER 09:35 → ICU 10:17
PROVIDERS: Internal Medicine Nephrology; Internal Medicine Pulmonary Disease; Physician Assistant; ADMIT Student in an Organized Health Care Education/Training Program
PROC: 5A1945Z Respiratory Ventilation, 24-96 Consecutive Hours (ICD-10-PCS; principal; 2020-05-13)
PROC: 0BH17EZ Insertion of Endotracheal Airway into Trachea, Via Natural or Artificial Opening (ICD-10-PCS; 2020-05-13)
DX: A41.89 Other specified sepsis (principal); R65.21 Severe sepsis with septic shock; U07.1 COVID-19; J96.91 Respiratory failure, unspecified with hypoxia; J96.01 Acute respiratory failure with hypoxia; I21.A1 Myocardial infarction type 2; Z94.0 Kidney transplant status; N17.9 Acute kidney failure, unspecified; E87.2 Acidosis; J84.9 Interstitial pulmonary disease, unspecified; I48.91 Unspecified atrial fibrillation; E11.9 Type 2 diabetes mellitus without complications; G47.33 Obstructive sleep apnea (adult) (pediatric); I10 Essential (primary) hypertension; D64.9 Anemia, unspecified; K21.9 Gastro-esophageal reflux disease without esophagitis; Z79.01 Long term (current) use of anticoagulants; Z79.4 Long term (current) use of insulin
CPT/HCPCS: 99223-AI; 99233-AI; 99239; C9113; J0456; J0692; J1100; J1815; J1940; J2250; J2543; J2704; J2765; J3010; J3370; J3475; J3480; J7030; J7050; J7060; J7120; J7507; J7517

== ENCOUNTER → 2021-06-12 | Outpatient (CLI) | payer MEDICARE, OTHER ==
[~2021-06-12] MED LIST changes: +COLACE 100100 MG/CAP PO; +CRANBERRY450 MG PO; +FLOMAX 0.40.4 MG/CAP PO; +FOLIC ACID0.4 MG PO; +MAGNESIUM500 MG PO; +NATURAL C500 MG PO; +NATURAL IRON65 MG PO; +NOVOLOG 100U100 U/M1 SQ
== END ==
LOC: COL.RAD 10:28
DX: N39.0 Urinary tract infection, site not specified (principal); Z90.5 Acquired absence of kidney

== ENCOUNTER 2021-08-26 13:19 | Outpatient (RCR) | payer MEDICARE, OTHER ==
[~2021-08-26] VITALS: Ht 180.3 cm; Wt 116.7 kg
[~2021-08-26 13:19] MED LIST changes: -COLACE 100100 MG/CAP PO; -CRANBERRY450 MG PO; -FLOMAX 0.40.4 MG/CAP PO; -FOLIC ACID0.4 MG PO; -MAGNESIUM500 MG PO; -NATURAL C500 MG PO; -NATURAL IRON65 MG PO; -NOVOLOG 100U100 U/M1 SQ
[2021-08-26 14:09] LABS: CALCIUM 9.8 mg/dL (8.4-10.2); CREATININE, serum 1.59 mg/dL (0.72-1.25); POTASSIUM 4.1 mmol/L (3.5-4.5)
[2021-08-26 14:11] VITALS: BP 118/75; PULSE 64; TEMP 98
[2021-08-26] MEDS ORDERED: NOVOLOG 100U100 U/M1 SQ (14:53)
[2021-08-26] MEDS ORDERED: MYFORTIC360 MG PO (14:54)
[2021-08-26] MEDS ORDERED: NORVASC 5MG5 MG/TAB PO (14:55)
[2021-08-26] MEDS ORDERED: PRAVACHOL 40MG40 MG PO (14:55)
[2021-08-26] MEDS ORDERED: PREDNISONE 5MG5 MG PO (14:55)
[2021-08-26] MEDS ORDERED: BASAGLAR K100 UNIT/1 SQ (14:56)
[2021-08-26] MEDS ORDERED: ELIQUIS 5MG PO (14:56)
[2021-08-26] MEDS ORDERED: COLACE 100100 MG/CAP PO (14:57)
[2021-08-26] MEDS ORDERED: TOPROL XL 50MG50 MG PO (14:58)
[2021-08-26] MEDS ORDERED: PROGRAF 1MG1 MG PO (14:59)
[2021-08-26] MEDS ORDERED: PRILOSEC 20MG20 MG PO (15:01)
[2021-08-26] MEDS ORDERED: K-PHOS NEUTRAL250 M1 PO (15:01)
[2021-08-26] MEDS ORDERED: MULTI VITAMINS1 TAB PO (15:02)
[2021-08-26] MEDS ORDERED: VITAMIN FLUSH-F1 CAP PO (15:02)
[2021-08-26] MEDS ORDERED: NATURAL C500 MG PO (15:03)
[2021-08-26] MEDS ORDERED: LASIX 40MG TABL40 MG PO (15:03)
[2021-08-26] MEDS ORDERED: FLOMAX 0.40.4 MG/CAP PO (15:03)
[2021-08-26] MEDS ORDERED: CRANBERRY450 MG PO (15:04)
[2021-08-26] MEDS ORDERED: MAGNESIUM500 MG PO (15:04)
[2021-08-26] MEDS ORDERED: NATURAL IRON65 MG PO (15:05)
[2021-08-26] MEDS ORDERED: FOLIC ACID0.4 MG PO (15:05)
[2021-08-27 08:48] VITALS: BP 148/66; PULSE 67; TEMP 98
== END 2021-08-27 16:49 ==
LOC: EUO 13:19
PROVIDERS: Urology
DX: N39.0 Urinary tract infection, site not specified (principal)
CPT/HCPCS: J3370; J7040; J7050

== ENCOUNTER 2021-09-12 13:34 | Emergency (ER) | payer MEDICARE, OTHER ==
[~2021-09-12 13:34] MED LIST changes: +COLACE 100100 MG/CAP PO; +CRANBERRY450 MG PO; +FLOMAX 0.40.4 MG/CAP PO; +FOLIC ACID0.4 MG PO; +MAGNESIUM500 MG PO; +NATURAL C500 MG PO; +NATURAL IRON65 MG PO; +NOVOLOG 100U100 U/M1 SQ
== END 2021-09-12 14:01 | disposition left against medical advice (07) ==
LOC: COL.ER 13:34
DX: R69 Illness, unspecified (principal)

== ENCOUNTER 2021-09-17 12:29 | Emergency (ER) | payer MEDICARE, OTHER ==
[~2021-09-17] VITALS: Ht 180.3 cm; Wt 110.5 kg
[2021-09-17 12:40] VITALS: TEMP 98.1
[2021-09-17 13:13] LABS: BASO # 0.1 K/mm3 (0.0-0.2); BASO % 0.9 % (0.0-2.0); EOS # 0.2 K/mm3 (0.0-0.7); EOS % 1.7 % (0-4.0); GRAN # 8.5 K/mm3 (1.4-6.5); GRAN % 73.7 % (42.2-75.2); HEMATOCRIT 44.9 % (42.0-52.0); HEMOGLOBIN 14.2 g/dl (13.5-18.0); LYMPH # 1.4 K/mm3 (1.2-3.4); LYMPH % 11.9 % (20.0-51.0); MEAN CELL VOLUME 90 fl (80.0-100.0); MEAN CORPUSCULAR HEMOGLOBIN 28 pg (27.0-31.0); MEAN CORPUSCULAR HGB CONC 32 g/dl (33.0-37.0); MONO # 1.3 K/mm3 (0.1-0.6); MONO % 10.9 % (1.7-9.3); PLATELET COUNT 355 K/mm3 (130-400); RED BLOOD COUNT 5.01 M/mm3 (4.20-5.60); REDCELL DISTRIBUTION WIDTH-CV 14.5 % (11.5-14.5)
[2021-09-17 13:15] LABS: INR 2.9 (0.8-3.0); PROTHROMBIN TIME 32.5 SECONDS (9.7-12.8)
[2021-09-17 13:17] LABS: ALBUMIN 3.4 gm/dL (3.4-4.8); BILIRUBIN,TOTAL 1.1 mg/dL (0.2-1.2); C-REACTIVE PROTEIN 0.99 mg/dL (0.00-0.50); CALCIUM 10.1 mg/dL (8.4-10.2); CREATININE, serum 1.53 mg/dL (0.72-1.25); POTASSIUM 3.6 mmol/L (3.5-4.5); TOTAL PROTEIN 7.1 gm/dL (6.2-8.1)
[2021-09-17 13:23] LABS: TROPONIN-I 0.018 ng/mL (0.00-0.033)
[2021-09-17 14:27] VITALS: BP 142/78; PULSE 79
== END 2021-09-17 14:12 | disposition home or self-care (01) ==
LOC: COL.ER 12:29
PROVIDERS: Emergency Medicine
DX: N18.9 Chronic kidney disease, unspecified (principal); I95.9 Hypotension, unspecified; D84.9 Immunodeficiency, unspecified; N39.0 Urinary tract infection, site not specified; Z94.0 Kidney transplant status; Z79.01 Long term (current) use of anticoagulants
CPT/HCPCS: J0696; J7030

== ENCOUNTER → 2021-11-27 | Outpatient (CLI) | payer MEDICARE, OTHER | LOC: COL.RAD 07:36 | DX: N13.70 Vesicoureteral-reflux, unspecified (principal); N13.30 Unspecified hydronephrosis; Z90.5 Acquired absence of kidney | CPT/HCPCS: Q9967 ==

== ENCOUNTER 2021-12-11 16:39 | Emergency (ER) | payer MEDICARE, OTHER ==
[~2021-12-11] VITALS: Ht 180.3 cm; Wt 118.2 kg
[2021-12-11 17:17] VITALS: BP 148/89; TEMP 98
[2021-12-11 20:05] LABS: BASO # 0.1 K/mm3 (0.0-0.2); BASO % 0.6 % (0.0-2.0); EOS # 0.1 K/mm3 (0.0-0.7); EOS % 1.3 % (0.0-4.0); GRAN # 7.8 K/mm3 (1.4-6.5); GRAN % 74.5 % (42.2-75.2); HEMATOCRIT 47.6 % (42.0-52.0); HEMOGLOBIN 15.6 g/dl (13.5-18.0); LYMPH # 1.5 K/mm3 (1.2-3.4); LYMPH % 14.2 % (20.0-51.0); MEAN CELL VOLUME 86 fl (80.0-100.0); MEAN CORPUSCULAR HEMOGLOBIN 28 pg (27-31); MEAN CORPUSCULAR HGB CONC 33 g/dl (33.0-37.0); MEAN PLATELET VOLUME 11.5 fl (7.4-10.4); MONO # 0.9 K/mm3 (0.1-0.6); MONO % 8.5 % (1.7-9.3); PLATELET COUNT 164 K/mm3 (130-400); RED BLOOD COUNT 5.55 M/mm3 (4.20-5.60)
[2021-12-11] MEDS ORDERED: NORCO 325 MG-51 TAB PO (20:15)
[2021-12-11 20:21] LABS: ALBUMIN 3.7 gm/dL (3.4-4.8); BILIRUBIN,TOTAL 0.4 mg/dL (0.2-1.2); CALCIUM 9.9 mg/dL (8.4-10.2); CREATININE, serum 1.33 mg/dL (0.72-1.25); POTASSIUM 4.4 mmol/L (3.5-4.5); TOTAL PROTEIN 7.4 gm/dL (6.2-8.1)
[2021-12-11 21:06] VITALS: PULSE 84
== END 2021-12-11 21:05 | disposition home or self-care (01) ==
LOC: COL.ER 16:39
PROVIDERS: Physician Assistant
DX: M25.562 Pain in left knee (principal); N39.0 Urinary tract infection, site not specified; Z96.651 Presence of right artificial knee joint; Z79.01 Long term (current) use of anticoagulants; Z79.2 Long term (current) use of antibiotics

== ENCOUNTER → 2021-12-17 | Outpatient (CLI) | payer MEDICARE, OTHER ==
[2021-12-17 18:04] LABS: HEMATOCRIT 46.6 % (42.0-52.0); HEMOGLOBIN 15.2 g/dl (13.5-18.0); MEAN CELL VOLUME 86 fl (80.0-100.0); MEAN CORPUSCULAR HEMOGLOBIN 28 pg (27-31); MEAN CORPUSCULAR HGB CONC 33 g/dl (33.0-37.0); MEAN PLATELET VOLUME 11.4 fl (7.4-10.4); PLATELET COUNT 188 K/mm3 (130-400); RED BLOOD COUNT 5.43 M/mm3 (4.20-5.60); REDCELL DISTRIBUTION WIDTH-CV 13.2 % (11.5-14.5)
[2021-12-17 18:44] LABS: ERYTHROCYTE SEDIMENTATION RATE 22 mm/hr (0-30)
== END ==
LOC: COL.LAB 17:07
PROVIDERS: Nurse Practitioner
DX: M25.562 Pain in left knee (principal); M25.462 Effusion, left knee; Z96.652 Presence of left artificial knee joint

== ENCOUNTER → 2022-01-10 | Outpatient (CLI) | payer MEDICARE, OTHER | LOC: COL.RAD 09:15 | DX: R22.42 Localized swelling, mass and lump, left lower limb (principal); M25.462 Effusion, left knee; M25.562 Pain in left knee; Z96.652 Presence of left artificial knee joint | CPT/HCPCS: A9503 ==

== ENCOUNTER → 2022-02-05 | Outpatient (CLI) | payer MEDICARE, OTHER ==
[2022-02-05 15:52] LABS: BASO # 0.1 K/mm3 (0.0-0.2); BASO % 1.1 % (0.0-2.0); EOS # 0.3 K/mm3 (0.0-0.7); EOS % 3.6 % (0.0-4.0); GRAN # 5.7 K/mm3 (1.4-6.5); GRAN % 63.6 % (42.2-75.2); HEMATOCRIT 50.7 % (42.0-52.0); HEMOGLOBIN 16.2 g/dl (13.5-18.0); LYMPH # 1.9 K/mm3 (1.2-3.4); LYMPH % 21.5 % (20.0-51.0); MEAN CELL VOLUME 88 fl (80.0-100.0); MEAN CORPUSCULAR HEMOGLOBIN 28 pg (27-31); MEAN CORPUSCULAR HGB CONC 32 g/dl (33.0-37.0); MEAN PLATELET VOLUME 11.2 fl (7.4-10.4); MONO # 0.8 K/mm3 (0.1-0.6); MONO % 9.4 % (1.7-9.3); PLATELET COUNT 214 K/mm3 (130-400); RED BLOOD COUNT 5.79 M/mm3 (4.20-5.60); REDCELL DISTRIBUTION WIDTH-CV 14.2 % (11.5-14.5)
[2022-02-05 15:57] LABS: INR 1.1 (0.8-3.0); PROTHROMBIN TIME 12.2 SECONDS (9.7-12.8)
[2022-02-05 16:08] LABS: ALBUMIN 3.8 gm/dL (3.4-4.8); BILIRUBIN,TOTAL 0.5 mg/dL (0.2-1.2); CREATININE, serum 1.33 mg/dL (0.72-1.25); POTASSIUM 3.5 mmol/L (3.5-4.5); TOTAL PROTEIN 8.1 gm/dL (6.2-8.1)
== END ==
LOC: COL.LAB 15:21
PROVIDERS: Orthopaedic Surgery
DX: Z01.812 Encounter for preprocedural laboratory examination (principal); Z79.01 Long term (current) use of anticoagulants

== ENCOUNTER 2022-11-26 10:08 | Inpatient (IN) | payer MEDICARE, OTHER ==
[~2022-11-26] VITALS: Ht 180.3 cm; Wt 103.0 kg
[~2022-11-26 10:08] MED LIST changes: +AMOXICILLIN 8751 TAB PO; +HUMALOGKP50/50 SQ; +KEPPRA250 MG PO; +LIPITOR 40MG TA40 MG PO; +MAG-OX 400400 MG/TAB PO; +MELATONIN3 M1 PO; +MIRALAX PA17 GM/Dose PO; +NATURE'S BLEND100 M2 PO; +NEURONTIN300 MG/CAP PO; +NOVLOG SQ; +PHOSPHA 250 NEU1 TAB PO; +PROTONIX 40MG T40 MG PO; +SENOKOT8.6 MG PO; +SYMMETREL100 MG PO; +TAMBOCOR 1100 MG/TAB PO; +TYLENOL 325MG325 MG PO
[2022-11-26 10:37] LABS: BASO # 0.1 K/mm3 (0.0-0.2); BASO % 0.7 % (0.0-2.0); EOS # 0.1 K/mm3 (0.0-0.7); EOS % 0.8 % (0.0-4.0); GRAN # 11.7 K/mm3 (1.4-6.5); GRAN % 82.6 % (42.2-75.2); HEMATOCRIT 34.3 % (42.0-52.0); HEMOGLOBIN 10.7 g/dl (13.5-18.0); LYMPH # 1.2 K/mm3 (1.2-3.4); LYMPH % 8.5 % (20.0-51.0); MEAN CELL VOLUME 91 fl (80.0-100.0); MEAN CORPUSCULAR HEMOGLOBIN 28 pg (27-31); MEAN CORPUSCULAR HGB CONC 31 g/dl (33.0-37.0); MONO % 6.7 % (1.7-9.3); PLATELET COUNT 249 K/mm3 (130-400); RED BLOOD COUNT 3.78 M/mm3 (4.20-5.60); REDCELL DISTRIBUTION WIDTH-CV 14.1 % (11.5-14.5)
[2022-11-26 10:52] LABS: ALBUMIN 1.9 gm/dL (3.4-4.8); BILIRUBIN,TOTAL 0.4 mg/dL (0.2-1.2); CALCIUM 10.4 mg/dL (8.4-10.2); CREATININE, serum 1.54 mg/dL (0.72-1.25); TOTAL PROTEIN 5.6 gm/dL (6.2-8.1)
[2022-11-26 11:04] LABS: COLLECTION METHOD CLEAN CATCH
[2022-11-26 11:22] LABS: AMORPHOUS CRYSTAL Present (NOT PRESENT); MUCOUS Present (NOT PRESENT); SQUAMOUS EPITHELIAL None Seen /hpf (0-10); URINE BACTERIA Rare /hpf (NONE SEEN); URINE RBC >50 /hpf (0-2)
[2022-11-26 11:27] LABS: URINE APPEARANCE Cloudy (CLEAR/HAZY); URINE COLOR Amber (YELLOW)
[2022-11-26 11:28] LABS: PH 5.5 (5.0-8.5); URINE BLOOD 3+ (NEGATIVE); URINE GLUCOSE Negative (NEGATIVE); URINE KETONE TRACE (NEGATIVE); URINE NITRATE Negative (NEGATIVE); URINE PROTEIN(semi-quant) 2+ (NEGATIVE); URINE UROBILINOGEN 0.2 E.U/dL (0.2-1.0)
[2022-11-26 11:53] LABS: ARTERIAL BLD GAS O2 SATURATION 99.1 % (92-100); ARTERIAL BLD GAS TCO2 CT 25.3; ARTERIAL BLOOD GAS BASE EXCESS -0.9 (-2-2); ARTERIAL BLOOD GAS PCO2 40.7 mmHg (35-45); ARTERIAL BLOOD GAS pH 7.39 (7.35-7.45)
--- NOTE | 2022-11-26 14:55 | NUR ---
Patient to room 309 from the ER. Slide board used to transfer to specialty bed. Patient A&Ox3. VSS. RT at the bedside to switch to airvo. IV CDI. Dyer intact. Family at the bedside. Nurse oriented the patient to location, room and call light. Patient positioned for comfort. Call light within reach
[2022-11-26 15:11] VITALS: BP 122/59; PULSE 74; TEMP 98.3
[2022-11-26] MEDS ORDERED: NORVASC 10MG10 MG PO (15:47)
[2022-11-26] MEDS ORDERED: NUTRISOURCE FI205 GM PO (16:03)
--- NOTE | 2022-11-26 19:22 | NUR ---
The patient is laying in bed at this time. He is on airvo saturations are 94-95%. The patient called and seemed to be very confused. He states that "someone came in to get me a shower and they left me in the hallway. Then they brought me back into my room and left me here." At this time, the patient is not stable enough to get in the shower, and none of the aides have mentioned getting him a bath. Will discuss giving a bed bath this evening. However, d/t airvo, the patient will not be able to get in the shower.
[2022-11-26 19:44] VITALS: BP 125/56; PULSE 80; TEMP 97.7
[2022-11-26 23:46] VITALS: BP 119/55; PULSE 63; TEMP 97.7
[2022-11-27] MEDS ORDERED: FOLIC ACID 11 MG/TA1 PO (01:00)
[2022-11-27] MEDS ORDERED: GLUCAGON EMERGEN1 M1 SQ (01:01)
[2022-11-27 03:43] VITALS: BP 92/50; PULSE 59; TEMP 97.4
[2022-11-27 06:57] LABS: BASO # 0.1 K/mm3 (0.0-0.2); EOS # 0.6 K/mm3 (0.0-0.7); EOS % 4.5 % (0.0-4.0); GRAN # 10.5 K/mm3 (1.4-6.5); GRAN % 77.4 % (42.2-75.2); HEMOGLOBIN 10.2 g/dl (13.5-18.0); LYMPH # 1.1 K/mm3 (1.2-3.4); LYMPH % 7.8 % (20.0-51.0); MEAN CELL VOLUME 91 fl (80.0-100.0); MEAN CORPUSCULAR HEMOGLOBIN 28 pg (27-31); MEAN CORPUSCULAR HGB CONC 31 g/dl (33.0-37.0); MEAN PLATELET VOLUME 11.6 fl (7.4-10.4); MONO # 1.2 K/mm3 (0.1-0.6); MONO % 8.8 % (1.7-9.3); PLATELET COUNT 265 K/mm3 (130-400); RED BLOOD COUNT 3.59 M/mm3 (4.20-5.60)
[2022-11-27 07:10] LABS: HEMATOCRIT 32.6 % (42.0-52.0)
[2022-11-27 07:11] LABS: ALBUMIN 1.8 gm/dL (3.4-4.8); CALCIUM 10.5 mg/dL (8.4-10.2); CREATININE, serum 1.38 mg/dL (0.72-1.25); MAGNESIUM 1.2 mg/dL (1.6-2.6); PHOSPHOROUS 2.8 mg/dL (2.3-4.7); POTASSIUM 4.3 mmol/L (3.5-4.5)
[2022-11-27 08:33] VITALS: BP 120/53; PULSE 62; TEMP 97.9
--- NOTE | 2022-11-27 11:04 | NUR ---
Patient is not oriented at this time. SW contacted patient's , Jenn (ph#[phone]) to discuss discharge planning. Patient has been at [facility] for a skilled stay and was also admitted to this hospital about a week ago. Patient sees Dr. Chavez for primary care. Patient has not been walking since about mid August based on report from . Jenn advised that she is primary DPOA-HC for patient and that their son, Davi is listed as an alternate. When RASHMI inquired about discharge plan and if patient would return to [facility], Jenn stated she did not know. Jenn advised her children feel like patient needs to go to [facility] again. SW followed up with Hospitalist who agreed that patient needs a [facility]. Per notes, patient is currently on 30 liters of oxygen. RASHMI contacted Kameron at [facility] and faxed referral. RASHMI also contacted Berna at [facility] and provided update on [facility]. RASHMI also faxed clinical updates to Berna. Discharge Plan: [facility]
--- NOTE | 2022-11-27 12:18 | NUR ---
Initial visit; Patient thanked Maintenance Mechanic Supervisor for looking in on him, offering him God's blessings and keeping him in her prayers.
[2022-11-27 12:20] VITALS: BP 129/55; PULSE 65; TEMP 97.8
--- NOTE | 2022-11-27 14:00 | NUR ---
DRESSINGS AND WOUND ASSESSMENT DONE BY WOUNDC ARE NURSE LIZZIE WELL THIS RN. SEE CHARTING.
[2022-11-27 16:33] VITALS: BP 119/61; PULSE 69; TEMP 97.9
[2022-11-27 20:15] VITALS: BP 116/60; PULSE 69; TEMP 98
[2022-11-28] VITALS (7 sets, daily range): BP systolic 106–129; BP diastolic 53–64; PULSE 65–73; TEMP 97.6–97.9
[2022-11-28 06:47] LABS: BASO # 0.1 K/mm3 (0.0-0.2); EOS # 0.7 K/mm3 (0.0-0.7); EOS % 6.7 % (0.0-4.0); GRAN # 7.3 K/mm3 (1.4-6.5); GRAN % 68.4 % (42.2-75.2); HEMATOCRIT 33.4 % (42.0-52.0); HEMOGLOBIN 10.6 g/dl (13.5-18.0); LYMPH # 1.4 K/mm3 (1.2-3.4); LYMPH % 13.2 % (20.0-51.0); MEAN CELL VOLUME 91 fl (80.0-100.0); MEAN CORPUSCULAR HEMOGLOBIN 29 pg (27-31); MEAN CORPUSCULAR HGB CONC 32 g/dl (33.0-37.0); MEAN PLATELET VOLUME 11.7 fl (7.4-10.4); MONO # 1.1 K/mm3 (0.1-0.6); MONO % 10.1 % (1.7-9.3); PLATELET COUNT 296 K/mm3 (130-400); RED BLOOD COUNT 3.69 M/mm3 (4.20-5.60); REDCELL DISTRIBUTION WIDTH-CV 14.1 % (11.5-14.5)
[2022-11-28 07:09] LABS: ALBUMIN 1.9 gm/dL (3.4-4.8); CALCIUM 10.8 mg/dL (8.4-10.2); CREATININE, serum 1.28 mg/dL (0.72-1.25); MAGNESIUM 1.3 mg/dL (1.6-2.6); PHOSPHOROUS 2.7 mg/dL (2.3-4.7); POTASSIUM 3.9 mmol/L (3.5-4.5)
--- NOTE | 2022-11-28 10:31 | NUR ---
Phone call received from Kameron at [facility] that clinically the patient has been accepted and that they are waiting on a bed. Time frame is low for this weekend and more likely early next week. Phone call made to the patients Jenn and updated. Jenn verbalizes agreement with plan. Phone call received from the patients son and plan reviewed with him as well. Discharge plan: [facility]
--- NOTE | 2022-11-28 17:45 | NUR ---
PATIENT AWAKE AND ALERT, RESTING IN BED. MITTENS HAVE BEEN OFF SINCE THIS AM. CATETER AND BEN CARE COMPLETED AGAIN D/T DRAINAGE FROM URETHRA. PATIENT DENIES ANY COMPLAINTS. CALL LIGHT WITH IN REACH.
--- NOTE | 2022-11-28 18:45 | NUR ---
RESPIRATORY HAS CHECKED ON PATIENT MULTIPLE TIMES WITHIN LAST 30 MINUTES. POOR READ ON 02 SENSOR, SENSOR TO EAR LOBE CHANGED. THEN MOVED TO FINGER. AFTER 15 MINUTES RESPIRATORY CALLED AGAIN, ADND CURRENTLY IN ROOM.
[2022-11-29] VITALS (7 sets, daily range): BP systolic 110–157; BP diastolic 58–85; PULSE 68–99; TEMP 97.8–98.6
[2022-11-29 06:27] LABS: BASO # 0.1 K/mm3 (0.0-0.2); BASO % 1.4 % (0.0-2.0); EOS # 0.5 K/mm3 (0.0-0.7); EOS % 5.4 % (0.0-4.0); GRAN # 6.3 K/mm3 (1.4-6.5); GRAN % 65.7 % (42.2-75.2); HEMOGLOBIN 10.8 g/dl (13.5-18.0); LYMPH # 1.4 K/mm3 (1.2-3.4); LYMPH % 15.1 % (20.0-51.0); MEAN CELL VOLUME 89 fl (80.0-100.0); MEAN CORPUSCULAR HEMOGLOBIN 28 pg (27-31); MEAN CORPUSCULAR HGB CONC 32 g/dl (33.0-37.0); MEAN PLATELET VOLUME 11.7 fl (7.4-10.4); MONO # 1.2 K/mm3 (0.1-0.6); PLATELET COUNT 297 K/mm3 (130-400); RED BLOOD COUNT 3.81 M/mm3 (4.20-5.60); REDCELL DISTRIBUTION WIDTH-CV 14.2 % (11.5-14.5)
[2022-11-29 06:45] LABS: ALBUMIN 1.9 gm/dL (3.4-4.8); CALCIUM 10.5 mg/dL (8.4-10.2); CREATININE, serum 1.36 mg/dL (0.72-1.25); MAGNESIUM 1.7 mg/dL (1.6-2.6); PHOSPHOROUS 3.3 mg/dL (2.3-4.7); POTASSIUM 3.7 mmol/L (3.5-4.5)
--- NOTE | 2022-11-29 09:00 | NUR ---
Pt awakens to voice but still drowsy. Oriented to self. Answers questions and converses appropriately. Attempts to feed self with much difficulty r/t BUE tremors. G-tube intact, clamped. Da Silva intact. Wound to end of penis cleansed with NS. Small amount purulent drainage noted. Urine draining to da silva bag, no leaking around catheter noted. BUE/BLE with 2-3+ edema.
--- NOTE | 2022-11-29 16:40 | NUR ---
CATHETER CARE PROVIDED. GROIN AREA CLEANED AND DRIED, POWDER REAPPLIED. NEW DRESSINGS CHANGES COMPLETE. SCROTUM ELEVATED ONTO PILLOW. PATIENT O2 INCREASED TO 4LNC TO REACH 91-92% SATURATION. PATIENT SAT UP IN BED TO EAT DINNER, WITH ASSIT FROM PCT. CALL LIGHT WITHIN REACH.
[2022-11-30 03:56] VITALS: BP 153/64; PULSE 74; TEMP 97.5
[2022-11-30 05:16] LABS: BASO # 0.1 K/mm3 (0.0-0.2); BASO % 1.4 % (0.0-2.0); EOS # 0.5 K/mm3 (0.0-0.7); EOS % 5.2 % (0.0-4.0); GRAN # 5.9 K/mm3 (1.4-6.5); GRAN % 62.5 % (42.2-75.2); HEMATOCRIT 35.9 % (42.0-52.0); HEMOGLOBIN 11.1 g/dl (13.5-18.0); LYMPH # 1.5 K/mm3 (1.2-3.4); LYMPH % 15.4 % (20.0-51.0); MEAN CELL VOLUME 91 fl (80.0-100.0); MEAN CORPUSCULAR HEMOGLOBIN 28 pg (27-31); MEAN CORPUSCULAR HGB CONC 31 g/dl (33.0-37.0); MEAN PLATELET VOLUME 11.4 fl (7.4-10.4); MONO # 1.4 K/mm3 (0.1-0.6); MONO % 15.1 % (1.7-9.3); PLATELET COUNT 317 K/mm3 (130-400); RED BLOOD COUNT 3.96 M/mm3 (4.20-5.60); REDCELL DISTRIBUTION WIDTH-CV 14.1 % (11.5-14.5)
[2022-11-30 05:31] LABS: CALCIUM 10.9 mg/dL (8.4-10.2); CREATININE, serum 1.27 mg/dL (0.72-1.25); MAGNESIUM 1.5 mg/dL (1.6-2.6); POTASSIUM 3.9 mmol/L (3.5-4.5)
[2022-11-30 07:06] VITALS: BP 121/51; PULSE 80; TEMP 97.6
--- NOTE | 2022-11-30 08:00 | NUR ---
Pt in high molina's in bed, watching TV. Morning medications administered per eMAR. Shift assessment completed. VSS. Pt A&Ox1, alert to self and unable to maintain conversation. Pt now on 3L per NC with O2 sat WNL of 92%. Telemetry remains on. PICC in R upper arm remains intact. G-tube remains in place, clamped. Dyer remains in place with output of clear yellow urine. SCDs on JENNIFER. Boots on JENNIFER. No further request at this time. Call light within reach. Fall precautions in place.
[2022-11-30 12:45] VITALS: BP 116/56; PULSE 72; TEMP 97.7
--- NOTE | 2022-11-30 12:45 | NUR ---
Dressing change conducted. Mepilex dressing x1 on sacrum replaced. Dressings on RLE x2 replaced. Pt repositioned and placed in high-molina's for lunch.
--- NOTE | 2022-11-30 12:59 | NUR ---
Updates sent to Rohan. RASHMI will continue to follow.
--- NOTE | 2022-11-30 15:42 | NUR ---
Pt's PICC line very sluggish, unable to flush purple lumen. A lot of resistance met with red lumen. Attempted to heparinize the red with no success. New IV 20G started to LAC.
[2022-11-30 16:13] VITALS: BP 144/64; PULSE 72; TEMP 98.1
[2022-11-30 20:30] VITALS: BP 123/67; PULSE 77; TEMP 98.1
[2022-11-30 23:13] VITALS: BP 104/53; PULSE 76; TEMP 98.5
[2022-12-01 03:07] VITALS: BP 110/46; PULSE 98; TEMP 98.4
--- NOTE | 2022-12-01 05:00 | NUR ---
ASSESSMENT COMPLETE FOR SECURITY ORDERLY. PT'S FAMILY CONCERNED ABOUT PT NOT KNOWING WHO HE WAS AND WHO THEY WERE ( & DAUGHTER). I WENT IN TO ASSESSMENT PT WITH FAMILY. PT ABLE TO TELL ME WHO HE AND HIS FAMILY MEMBERS WERE. HOSPITALIST CALLED. ORDERED TO CONTINUE MONITORING PT. BED ALARM ON. CALL LIGHT WITHIN REACH.
[2022-12-01 06:38] LABS: HEMATOCRIT 37.4 % (42.0-52.0); HEMOGLOBIN 11.7 g/dl (13.5-18.0); MEAN CELL VOLUME 91 fl (80.0-100.0); MEAN CORPUSCULAR HEMOGLOBIN 29 pg (27-31); MEAN CORPUSCULAR HGB CONC 31 g/dl (33.0-37.0); MEAN PLATELET VOLUME 11.5 fl (7.4-10.4); PLATELET COUNT 312 K/mm3 (130-400)
[2022-12-01 06:46] LABS: ALBUMIN 2.1 gm/dL (3.4-4.8); CALCIUM 11.4 mg/dL (8.4-10.2); CREATININE, serum 1.37 mg/dL (0.72-1.25); MAGNESIUM 1.4 mg/dL (1.6-2.6); PHOSPHOROUS 2.9 mg/dL (2.3-4.7)
[2022-12-01 07:37] LABS: BASOPHIL 1 % (0-2); EOSINOPHIL 5 % (0-4); LYMPHOCYTE 10 % (20.0-51.0); NEUTROPHILS 69 % (42.0-75.2); NUCLEATED RED BLOOD CELL 1 (0-6)
[2022-12-01 07:38] LABS: PLATELET ESTIMATE NORMAL (NORMAL)
[2022-12-01 07:39] LABS: HYPOCHROMIA 2+
[2022-12-01 07:50] VITALS: BP 104/65; PULSE 82; TEMP 97.9
--- NOTE | 2022-12-01 09:00 | NUR ---
Pt awake and eating breakfast. Morning medications administered per eMAR. Shift assessment completed. Pt remains on 3L per NC. Telemetry remains on. PICC in GIANA in place; YAW Silva notified of inability to flush. INT in L forearm patent, no edema or redness. G-tube remains clamped. Dyer catheter remains in place. SCDs on JENNIFER. Boots on JENNIFER. Call light within reach.
--- NOTE | 2022-12-01 10:08 | NUR ---
Nurse contacted this RN regarding PICC not flushing, dressing changed, attempted flushing, able to flush with alot of resistance on purple port, and blood return noted, red port not able to flush at all. Chest xray ordered, as cathflow was done yesterday. Will await results.
--- NOTE | 2022-12-01 10:09 | NUR ---
Clinical updates faxed to Kameron at [facility]. RASHMI informed Kameron that palliative consult placed and will keep him updated on outcome.
[2022-12-01 11:22] VITALS: BP 106/58; PULSE 76; TEMP 98
--- NOTE | 2022-12-01 13:19 | NUR ---
Chest x-ray was obtained regarding PICC line occlusion. Chest x-ray showed that the PICC line is kinked in the patient's arm. Dr. Horn notified, Verbal order for PICC exchange obtained.
--- NOTE | 2022-12-01 14:00 | NUR ---
Patient scheduled telehealth visit with Dr. Landaverde, Infectious Disease. Pt consents to visit. Equipment set up, audio and video connections established. Visit conducted by . No technical concerns or issues.
[2022-12-01 16:00] VITALS: BP 131/66; PULSE 77; TEMP 97.7
--- NOTE | 2022-12-01 16:30 | NUR ---
Pts daughter notified this nurse of pts fall prior to arriving to hospital. Pts daughter requesting CT of pts head. ZECHARIAH Tran notified; new orders placed.
--- NOTE | 2022-12-01 18:00 | NUR ---
THIS RN RECEIVED A PHONE CALL FROM THE RADIOLOGIST STATING THAT PATIENT HAS HAD TWO NEW INFARCTS SINCE PREVIOUS IMAGING IN AUGUST, BUT NO ACTIVE BLEEDING. PER RADIOLOGIST, MRI RECOMMENDED. DR. MORENO UPDATED REGARDING CT RESULTS AND RADIOLOGIST RECOMMENDATION FOR MRI. PER DR. MORENO, PATIENT HAS PALLIATIVE CARE CONSULT ORDERED, WILL NOT ORDER MRI FOR NOW. FELA HAINES FOR PATIENT AND GEOSCIENCE PROFESSOR UPDATED.
[2022-12-01 20:30] VITALS: BP 121/84; PULSE 80; TEMP 98.7
[2022-12-02] VITALS (8 sets, daily range): BP systolic 103–150; BP diastolic 44–71; PULSE 82–102; TEMP 97.6–99.3
--- NOTE | 2022-12-02 02:35 | NUR ---
PATIENT ASSESSED AND MEDICATIONS GIVEN. HE IS DISORIENTED AND REPEATING WHAT I'VE SAID TO HIM. AND DAUGHTER AT BEDSIDE. CONTINUES ON 3L OF OXYGEN. PICC IN PLACE WITH GOOD BLOOD RETURN AND FLUSHES WELL. JOHN WITH GOOD OUTPUT, RECEIVING LASIX. CLAMPED G TUBE. PALLIATIVE CONSULT TOMORROW. CT HEAD- TWO NEW SITES OF STROKE ON RIGHT SIDE OF BRAIN. BOOTS AND SCD'S ON. REPOSITIONED OFTEN. CALL LIGHT IN REACH. BED IN LOWEST POSITION.
[2022-12-02 06:50] LABS: HEMATOCRIT 38.6 % (42.0-52.0); MEAN CELL VOLUME 90 fl (80.0-100.0); MEAN CORPUSCULAR HEMOGLOBIN 28 pg (27-31); MEAN CORPUSCULAR HGB CONC 31 g/dl (33.0-37.0); MEAN PLATELET VOLUME 11.3 fl (7.4-10.4); PLATELET COUNT 325 K/mm3 (130-400); RED BLOOD COUNT 4.27 M/mm3 (4.20-5.60); REDCELL DISTRIBUTION WIDTH-CV 14.1 % (11.5-14.5)
[2022-12-02 06:55] LABS: CALCIUM 11.6 mg/dL (8.4-10.2); CREATININE, serum 1.3 mg/dL (0.72-1.25); MAGNESIUM 1.4 mg/dL (1.6-2.6)
[2022-12-02 07:18] LABS: BAND 3 % (0-10); EOSINOPHIL 3 % (0-4); LYMPHOCYTE 21 % (20.0-51.0); NEUTROPHILS 56 % (42.0-75.2); PLATELET ESTIMATE NORMAL (NORMAL)
--- NOTE | 2022-12-02 08:37 | NUR ---
Pt awake and watching TV. GLORIA Tovar student providing all pt care and medication administration. Shift assessment completed. Pt unable to state name/. Pt mumbling continuously, incomprehensible. Remains on 3L per NC with O2 sat WNL of 96%. Telemetry remains on. PICC in GIANA intact, acewrap in place. INT in L forearm patent, no edema or redness. G-tube remains clamped. Dyer remains in place. SCDs on JENNIFER. Boots on JENNIFER. Call light within reach. Student remains at bedside.
--- NOTE | 2022-12-02 10:30 | NUR ---
I called Jenn at [phone] and left a message concerning possible family meeting with Dr. Horn later today around 2:30-3:00. Awaiting return call.
--- NOTE | 2022-12-02 12:25 | NUR ---
I called Jenn and tried to leave a message but the mailbox was full. I then called daughter Yokasta at [phone] and left a message. Requested a call back, awaiting response.
--- NOTE | 2022-12-02 15:47 | NUR ---
Public Opinion Survey Taker spoke with Kameron at [facility] who is still waiting on a bed for patient. RASHMI also contacted Berna at [facility] to request copy of DPOA-HC and Berna advised family never provided one. Berna also stated the family picked up all of patient's belongings this weekend so he was discharged from their care. Devorah GARZA attempted to contact patient's , Jenn to set up a family meeting and she did not answer. RASHMI was then contacted by patient's daughter, Phyllis. RASHMI requested a family meeting to be scheduled and Phyllis advised she would try to coordinate with this with her mother, Jenn and her brothers. RASHMI also requested Phyllis bring in a copy of DPOA-HC which family has reported designates Jenn and out of state son, Davi.
--- NOTE | 2022-12-02 15:47 | NUR ---
Patient scheduled telehealth visit with Dr. Landaverde, Infectious Disease. Pt consents to visit. Equipment set up, audio and video connections established. Visit conducted by MD. No technical concerns or issues. Nurse present in room to answer questions.
[2022-12-03 03:57] VITALS: BP 131/51; PULSE 75; TEMP 98.6
--- NOTE | 2022-12-03 05:00 | NUR ---
PATIENT ASSESSED AND GIVEN NIGHTLY MEDICATIONS. CONTINUES ON 3L OF OXYGEN. JOHN WITH CLEAR/YELLOW URINE. DISCHARGE PENDING AN OPEN BED AT [facility]. PICC WITH BLOOD RETURN AND FLUSHES. GIVEN TYLENOL ONE TIME PRIOR TO BEDTIME. CALL LIGHT IN REACH. BED IN LOWEST POSITION. AND DAUGHTER UPDATED.
[2022-12-03 07:04] VITALS: BP 152/66; PULSE 74; TEMP 98.8
[2022-12-03 07:09] LABS: CALCIUM 11.4 mg/dL (8.4-10.2); CREATININE, serum 1.44 mg/dL (0.72-1.25); MAGNESIUM 1.7 mg/dL (1.6-2.6); PHOSPHOROUS 3.6 mg/dL (2.3-4.7); POTASSIUM 3.9 mmol/L (3.5-4.5)
[2022-12-03 07:20] LABS: HEMATOCRIT 38.7 % (42.0-52.0); HEMOGLOBIN 11.9 g/dl (13.5-18.0); MEAN CELL VOLUME 90 fl (80.0-100.0); MEAN CORPUSCULAR HEMOGLOBIN 28 pg (27-31); MEAN CORPUSCULAR HGB CONC 31 g/dl (33.0-37.0); MEAN PLATELET VOLUME 11.6 fl (7.4-10.4); PLATELET COUNT 288 K/mm3 (130-400); RED BLOOD COUNT 4.31 M/mm3 (4.20-5.60); REDCELL DISTRIBUTION WIDTH-CV 14.3 % (11.5-14.5)
[2022-12-03 07:59] LABS: BAND 5 % (0-10); EOSINOPHIL 5 % (0-4); LYMPHOCYTE 15 % (20.0-51.0); METAMYELOCYTE 1 % (0-0); NEUTROPHILS 60 % (42.0-75.2); PLATELET ESTIMATE NORMAL (NORMAL)
--- NOTE | 2022-12-03 10:37 | NUR ---
Pt assessment complete. Pt is laying in bed upon entry, he is alert but not oriented. Is not able to answer any questions or have sensible conversation. Pt does not appear to be in any pain. Breathing is even and unlabored on 3L O2 via NC. Gomez ARMENTA. On a specialty mattress. IVF started to RUE PICC. No needs at this time. Call light within reach.
[2022-12-03 11:19] VITALS: BP 133/75; PULSE 98; TEMP 98.7
[2022-12-03 15:15] LABS: CALCIUM 10.1 mg/dL (8.4-10.2); CREATININE, serum 1.64 mg/dL (0.72-1.25); POTASSIUM 4.1 mmol/L (3.5-4.5)
--- NOTE | 2022-12-03 16:18 | NUR ---
Wire Winder faxed clinical updates to Kameron at [facility]. No bed is available today. SW participated in family meeting at bedside which included patient's Jenn, daughter Phyllis, and son Bayron by phone. Goals of care and medical update were discussed by Hospitalist. Plan is for discharge to [facility] and to continue with agressive treatment. Discharge Plan: [facility]
[2022-12-03 16:22] VITALS: BP 116/95; PULSE 79; TEMP 98.8
--- NOTE | 2022-12-03 16:26 | NUR ---
Family meeting held with Dr. Horn, Jenn, daughter Yokasta, myself, the pt, Christel RASHMI, son Alexis on the phone. Dr. Horn reviewed the case with the family and asked what their desire was concerning GOC. Pt remains a Full Code. At this time the family is wanting pt to have aggressive care and go to [facility]. Dr. Horn answered all of their questions and family voiced understanding. It was stated, "This is like [facility] all over again." At [facility] family was encouraged to think of Comfort Care. I encouraged the family to consider what they would want to do if the pt did not progress as hoped while things were somewhat calm vs a code situation etc. Possible GI consult for bloody stool today. Waiting on [facility] for placement.
[2022-12-03 17:44] VITALS: BP 128/32; PULSE 79
--- NOTE | 2022-12-03 19:09 | NUR ---
Pt rested through the day. Less alert this afternoon, he would open his eyes for a short time and then fall back asleep. He did not eat dinner. Pt on specialty bed. Wound care provided by wound care team. Hospitalists aware of bloody BM during dressing changes. Continues on 3L O2 via NC.
[2022-12-03 19:48] VITALS: BP 176/88; PULSE 79; TEMP 99
[2022-12-03 20:24] LABS: CALCIUM 10.9 mg/dL (8.4-10.2); CREATININE, serum 1.5 mg/dL (0.72-1.25); POTASSIUM 4.5 mmol/L (3.5-4.5)
[2022-12-04] VITALS (7 sets, daily range): BP systolic 92–140; BP diastolic 33–99; PULSE 70–78; TEMP 98–98.7
--- NOTE | 2022-12-04 07:47 | NUR ---
CRITICAL LAB RECEIVED OF GLUCOSE OF 536. FINGER STICK GLUCOSE NOTED TO BE 141. REQUESTED LAB REDRAW. PER HS RN, PATIENT NOTED TO BE POCKETING FOOD OVERNIGHT AND UNSAFE FOR PO INTAKE. PATIENT NOTED TO BE ALERT THIS MORNING BUT NOT ORIENTED, DOES NOT APPEAR SAFE FOR PO INTAKE. ZECHARIAH CHO UPDATED REGARDGING GLUCOSE LEVEL AND POCKETING OF FOOD OVERNIGHT, PO MEDS TO BE HELD THIS MORNING.
--- NOTE | 2022-12-04 07:52 | NUR ---
0700 Received report from night order selector nurse Yani TIDWELL.
--- NOTE | 2022-12-04 07:53 | NUR ---
0715 Completed head to toe assessment, see shift assessment, on patient. Patient not tracking this nurse. Patient unable to state his name, patient mumbling repeated words. Patient unable to follow any commands. Primary nurse alerted of this change. Patient tremoring BUE, unable to be still. VS WNL. Patient on 3L supplemental 02 via nasal cannula. 3+ pitting edema to LUE and LLE, 1+ pitting edema to RLE, no edema to RUE. Patient unable to verbalize pain, pt shows no facial grimacing or non-verbal indicators of pain. PICC line to right upper arm, IV to left AC. G-tube present to middle of patient's abdomen, primary nurse instructs g-tube hasn't been used for some time as patient was previously taking everything orally. Patient lying supine in bed, bed in lowest poistion, call light in reach, patient continues to mumble repeated words.
[2022-12-04 08:08] LABS: HEMATOCRIT 39.2 % (42.0-52.0); HEMOGLOBIN 11.9 g/dl (13.5-18.0); MEAN CELL VOLUME 91 fl (80.0-100.0); MEAN CORPUSCULAR HEMOGLOBIN 28 pg (27-31); MEAN CORPUSCULAR HGB CONC 30 g/dl (33.0-37.0); MEAN PLATELET VOLUME 11.5 fl (7.4-10.4); PLATELET COUNT 278 K/mm3 (130-400); REDCELL DISTRIBUTION WIDTH-CV 14.3 % (11.5-14.5)
[2022-12-04 08:25] LABS: CALCIUM 11.5 mg/dL (8.4-10.2); CREATININE, serum 1.41 mg/dL (0.72-1.25); MAGNESIUM 1.7 mg/dL (1.6-2.6); PHOSPHOROUS 2.9 mg/dL (2.3-4.7); POTASSIUM 4.2 mmol/L (3.5-4.5)
[2022-12-04 08:48] LABS: BAND 5 % (0-10); BASOPHIL 2 % (0-2); EOSINOPHIL 7 % (0-4); LYMPHOCYTE 14 % (20.0-51.0); METAMYELOCYTE 4 % (0-0); MYELOCYTE 2 % (0-0); NEUTROPHILS 43 % (42.0-75.2)
[2022-12-04 08:50] LABS: HYPOCHROMIA 1+
[2022-12-04 08:51] LABS: ANISOCYTOSIS 1+; PLATELET ESTIMATE NORMAL (NORMAL)
--- NOTE | 2022-12-04 11:07 | NUR ---
SHIFT ASSESSMENT COMPLETED AND MORNING IV MEDICATIONS ADMINISTERED PER ORDER. PATIENT IS ALERT BUT NOT ORIENTED. JOHN IN PLACE. PICC TO RIGHT UPPER ARM, PATENT WITH GOOD BLOOD RETURN. ON D5W, TOLERATING WELL. ATTEMPTED TO GIVE PO INTAKE PER DR. MORENO, PATIENT UNABLE TO SWALLOW AND NOTED TO BE POCKETING FOOD, UNABLE TO SAFELY GIVE PO MEDS AT THIS TIME. DR. MORENO AND ZECHARIAH CHO UPDATED. [facility] CONTACTED THIS MORNING AT 0900 WITH REQUEST TO SEE PATIENT, WILL ATTEMPT TO GIVE PO MEDS WITH [facility] AT BEDSIDE PER THEIR RECOMMENDATION. PATIENT DOES NOT APPEAR TO BE IN PAIN THIS MORNING. DRESSINGS IN PLACE TO FOOT AND COCCYX. WOUND NOTED TO PENIS, AREA CLEANSED AND LEFT OPEN TO AIR. PATIENT REPOSITIONED IN BED. CALL LIGHT WITHIN REACH.
--- NOTE | 2022-12-04 12:55 | NUR ---
[facility] IN TO SEE PATIENT, ATTEMPTED TO GIVE MEDICATIONS CRUSHED IN APPLESAUCE WITH ASSISTANCE OF ST, PATIENT UNABLE TO SWALLOW MEDICATIONS. PER SPEECH THERAPIST, RECOMMENDATION AT THIS TIME IS FOR PATIENT TO BE NPO. ZECHARIAH CHO UPDATED. PER PHARMACISTLORA, PATIENT'S PROGRAF CANNOT BE CRUSHED, PA UPDATED. AREA AROUND PEG TUBE NOTED TO HAVE DRY DISCHARGE, AREA CLEANSED.
--- NOTE | 2022-12-04 12:59 | NUR ---
[facility] was scanned into chart by medical records. Primary agent is , Jenn and secondary agent is son, Davi. SW was contacted by Kameron at [facility] who advised they will not have a bed available today. SW attended clinical rounds with team and patient may need evaluated for feeding tube.
--- NOTE | 2022-12-04 16:13 | NUR ---
CONSULTED WITH PHARMACY REGARDING ABILITY TO CRUSH PATIENT'S MEDICATIONS. PER PHARMACY, STAFF ABLE TO ADMINISTER PROGRAF BY OPENING CAPSULE AND MIXING IN WATER, THEN ADMINISTERING THROUGH FEEDING TUBE. STAFF MUST CLAMP FEEDING TUBE FOR 30-60 MINUTES FOLLOWING ADMINISTRATION OF PROGRAF. PER RADIOLOGY, FEEDING TUBE IS IN CORRECT POSITION AND PATENT. PER ZECHARIAH CHO, OKAY TO USE FEEDING TUBE TO ADMINISTER MEDS AND GIVE TUBE FEEDING AT THIS TIME. WILL ADMINISTER AM MEDICATIONS AND START TUBE FEEDING PER ORDER FOLLOWING 30-60 MINUTE CLAMP TIME. FAMILY AT BEDSIDE, STATES THEY WANT TO PROCEDE WITH TUBE FEEDING.
--- NOTE | 2022-12-04 19:07 | NUR ---
TUBE FEEDING TO START AT 1999 TO LINE UP WITH Q4 RESIDUAL CHECKS, DEVORA RN AWARE.
--- NOTE | 2022-12-04 19:08 | NUR ---
PATIENT IN BED AT THIS TIME. CONTINUES ON FLUIDS, TOLERATING WELL. HOB ELEVATED 40 DEGREES. REPOSITIONED IN BED, PERICARE/ CATH CARE PROVIDED THIS MORNING. DRESSINGS TO COCCYX AND FOOT CLEAN, DRY, AND INTACT. CALL LIGHT WITHIN REACH.
[2022-12-04 19:34] LABS: CALCIUM 11.6 mg/dL (8.4-10.2); CREATININE, serum 1.42 mg/dL (0.72-1.25); POTASSIUM 4.4 mmol/L (3.5-4.5)
[2022-12-05 03:29] VITALS: BP 160/95; PULSE 52; TEMP 97.5
[2022-12-05 06:28] LABS: HEMATOCRIT 38.8 % (42.0-52.0); HEMOGLOBIN 11.4 g/dl (13.5-18.0); MEAN CELL VOLUME 95 fl (80.0-100.0); MEAN CORPUSCULAR HEMOGLOBIN 28 pg (27-31); MEAN CORPUSCULAR HGB CONC 29 g/dl (33.0-37.0); MEAN PLATELET VOLUME 11.5 fl (7.4-10.4); PLATELET COUNT 248 K/mm3 (130-400); REDCELL DISTRIBUTION WIDTH-CV 14.2 % (11.5-14.5)
[2022-12-05 06:50] VITALS: BP 115/53; PULSE 69; TEMP 98.8
[2022-12-05 06:54] LABS: CALCIUM 11.6 mg/dL (8.4-10.2); CREATININE, serum 1.47 mg/dL (0.72-1.25); MAGNESIUM 1.8 mg/dL (1.6-2.6); PHOSPHOROUS 2.9 mg/dL (2.3-4.7); POTASSIUM 4.1 mmol/L (3.5-4.5)
--- NOTE | 2022-12-05 06:59 | NUR ---
0635 Received shift report on patient from Kayla TIDWELL.
--- NOTE | 2022-12-05 07:01 | NUR ---
0650 Patient assessed, head to toe completed (see shift assessment). Patient alert but not oriented. Unable to state name, time, etc. Verbage is jumbled and unable to be understood. Patient repeats mumbled statements often. Patient is unable to follow directions at this time. Patient currently reaching into the air with left arm. PICC present to right upper arm, peripheral line to left AC. Peripheral to left AC flushes easily with no blood return. D5 running to right arm PICC at 75 mL/hr. SCDs to bilateral lower extremities. 1+ pitting edema to RLE, 2+ pitting edema to LLE. Wet cough is present, lung sounds difficult to hear as patient continues to mumble. Glucerna 1.5 dane running at 30 mL/hr to g-tube. Patient displays no non-verbal indicators of pain, no facial grimacing, no protective movements. supplemental oxygen present at 3L via nasal cannula. Patient in bed turned onto right side, call light in reach, bed alarm on.
[2022-12-05 07:33] LABS: BAND 2 % (0-10); EOSINOPHIL 4 % (0-4); LYMPHOCYTE 23 % (20.0-51.0); METAMYELOCYTE 2 % (0-0); MYELOCYTE 3 % (0-0); NEUTROPHILS 52 % (42.0-75.2)
[2022-12-05 07:34] LABS: ANISOCYTOSIS 1+; HYPOCHROMIA 3+
[2022-12-05 07:35] LABS: PLATELET ESTIMATE NORMAL (NORMAL)
--- NOTE | 2022-12-05 09:12 | NUR ---
DAUGHTER AT BEDSIDE RIGHT NOW, REQUESTS STAFF WAIT UNTIL SHE IS FINISHED VISITING WITH HER DAD TO PROVIDE CARES. WILL ADMINISTER MEDS, REPOSITION, AND CHECK RESIDUALS WHEN DAUGHTER LEAVES PER REQUEST.
[2022-12-05] MEDS ORDERED: ASPIRIN 81M81 MG/TA2 PO (09:23)
--- NOTE | 2022-12-05 10:06 | NUR ---
SHIFT ASSESSMENT COMPLETED. PATIENT IS ALERT BUT NOT ORIENTED. ON TUBE FEEDING CONTINUOUS AT 30ML/HR, TOLERATING WELL, NO ABDOMINAL DISTENTION, NAUSEA, OR VOMITING NOTED. ON IV FLUIDS, TOLERATING WELL. PICC LINE IN PLACE TO UPPER RIGHT ARM, RED PORT PATENT WITH GOOD BLOOD RETURN, PURPLE PORT NON-PATENT, [facility] CALLED TO ASSESS PICC LINE. UPDATE GIVEN TO PER REQUEST. CALL LIGHT WITHIN REACH.
--- NOTE | 2022-12-05 11:16 | NUR ---
1100 Patient hygiene care completed. Bath bath completed with change of gown. Karla care completed along with application of desenex powder. At this time, primary RN assessed wound to patient's coccyx and changed allevyn dressing. Area around patient's peg tube cleaned and perforated gauze placed to insertion site. SCDs removed for bed bath but replaced once finished. Shower cap applied and hair care completed. Patient was repositioned with pillows to offload from pressure sore to coccyx. Patient's continues to have dressings and boots to bilateral feet for pressure wounds. During hygiene care, PICC nurse assessed purple port to patient's PICC line and determined cath flow was needed. Primary nurse received cath-flow and pushed as directed. Oral care with moistened sponges was also provided. Patient dentition cleanse is poor as patient was unable to follow directions from this nurse. Three moistened oral swabs were used to clean food from patient's teeth/gum along with cleaning/moistening patient's tongue. Patient resting comfortably in bed in supine position with head of the bed elevated at [address] with patient's heels floating. Call light in place. Bed in lowest position. Bed alarm on.
[2022-12-05 11:35] VITALS: BP 139/72; PULSE 64; TEMP 97.8
--- NOTE | 2022-12-05 13:28 | NUR ---
Patient scheduled telehealth visit with Dr. Landaverde, Infectious Disease. RN present in room to answer questions. Pt consents to visit. Equipment set up, audio and video connections established. Visit conducted by . No technical concerns or issues.
[2022-12-05 14:33] VITALS: BP 139/72; PULSE 64; TEMP 97.8
--- NOTE | 2022-12-05 14:49 | NUR ---
Residence Manager spoke with Kameron at [facility] who advised they have a bed for patient today. RASHMI met with patient's , Jenn and daughter, Tanika to provide update. Transport time was set up for 1500 with [facility]. Ground Defence Officer notified. RASHMI faxed discharge orders to Kameron at [facility] and placed completed EMS forms on patient's chart. Discharge Plan: [facility]
--- NOTE | 2022-12-05 15:47 | NUR ---
PATIENT TO TRANSFER TO [facility] THIS AFTERNOON, AWAITING EMS PICKUP. DISCHARGE PACKET COMPLETE AND WILL BE SENT WITH PATIENT. REPORT GIVEN TO JOANNE NURSE AT [facility], ALL QUESTIONS ANSWERED. CONTINUOUS TUBE FEEDING HELD FOR TRANSPORT, PEG TUBE CLAMPED. D5W STILL RUNNING AT 75, PER DR. MORENO, PATIENT CAN STAY ON DRIP DURING TRANSPORT. DRESSING TO COCCYX CHANGED AND WOUND CLEANSED. BED BATH PROVIDED. AREA SURROUNDING PEG TUBE CLEANSED AND NEW DRAIN SPONGES APPLIED. PATIENT REPOSITIONED FREQUENTLY. FAMILY AT BEDSIDE.
--- NOTE | 2022-12-05 16:32 | NUR ---
PATIENT DISCHARGED VIA EMS AT 1615.
[2022-12-06 07:42] LABS: PATHOLOGY DIFF REVIEW OK
== END 2022-12-05 16:15 | DRG 871 ==
LOC: COL.ER 10:08 → MEDICAL 13:02
PROVIDERS: Family Medicine; Internal Medicine; Physician Assistant; ADMIT Internal Medicine
PROC: 02HV33Z Insertion of Infusion Device into Superior Vena Cava, Percutaneous Approach (ICD-10-PCS; 2022-11-26)
PROC: 02HV33Z Insertion of Infusion Device into Superior Vena Cava, Percutaneous Approach (ICD-10-PCS; principal; 2022-12-01)
DX: A41.9 Sepsis, unspecified organism (principal); G93.41 Metabolic encephalopathy; I21.A1 Myocardial infarction type 2; I50.33 Acute on chronic diastolic (congestive) heart failure; I63.9 Cerebral infarction, unspecified; J18.9 Pneumonia, unspecified organism; Z66 Do not resuscitate; J96.01 Acute respiratory failure with hypoxia; N17.9 Acute kidney failure, unspecified; I13.0 Hypertensive heart and chronic kidney disease with heart failure and stage 1 through stage 4 chronic kidney disease, or unspecified chronic kidney disease; Z94.0 Kidney transplant status; N39.0 Urinary tract infection, site not specified; E87.0 Hyperosmolality and hypernatremia; E87.3 Alkalosis; C64.9 Malignant neoplasm of unspecified kidney, except renal pelvis; I48.91 Unspecified atrial fibrillation; K21.9 Gastro-esophageal reflux disease without esophagitis; G47.33 Obstructive sleep apnea (adult) (pediatric); I95.9 Hypotension, unspecified; N31.9 Neuromuscular dysfunction of bladder, unspecified; E11.22 Type 2 diabetes mellitus with diabetic chronic kidney disease; N18.30 Chronic kidney disease, stage 3 unspecified; Z96.652 Presence of left artificial knee joint; Z20.822 Contact with and (suspected) exposure to COVID-19; G51.0 Bell's palsy; E78.5 Hyperlipidemia, unspecified; L89.152 Pressure ulcer of sacral region, stage 2; R29.700 NIHSS score 0; E83.42 Hypomagnesemia; B96.5 Pseudomonas (aeruginosa) (mallei) (pseudomallei) as the cause of diseases classified elsewhere; G20 Parkinson's disease; L40.9 Psoriasis, unspecified; B37.9 Candidiasis, unspecified; R13.10 Dysphagia, unspecified; Z88.8 Allergy status to other drugs, medicaments and biological substances; Z87.820 Personal history of traumatic brain injury; Z86.711 Personal history of pulmonary embolism; Z86.718 Personal history of other venous thrombosis and embolism; Z90.89 Acquired absence of other organs; Z79.4 Long term (current) use of insulin; Z79.01 Long term (current) use of anticoagulants; Z86.74 Personal history of sudden cardiac arrest; Z91.048 Other nonmedicinal substance allergy status; Z23 Encounter for immunization
CPT/HCPCS: C1751; C1892; C9113; J0692; J0696; J1644; J1815; J1940; J1953; J2185; J2920; J2997; J3370; J3475; J3480; J7030; J7040; J7070; J7507; J7512